=== PATIENT | male | born 1950 | race African-American/Black ===

== ENCOUNTER 2019-08-10 21:35 | Observation (INO) | payer OTHER, SELFPAY ==
[2019-08-11] MEDS ORDERED: Ondansetron ODT 4 MG TAB PO PRN (00:44)
[2019-08-11] MEDS ORDERED: Acetaminophen 325 MG TAB PO PRN (00:44)
[2019-08-11 01:16] VITALS: BMI 25.0
[2019-08-11] MEDS: Diazepam 5 MG TAB PO SCH ×4 (01:19→18:40)
[2019-08-11] MEDS: Multivitamins, Adult 10 ML, Folic Acid 1 MG, Thiamine HCl 100 MG in Dextrose 5 %-0.45 %... IV SCH (01:20)
[2019-08-11 02:30] LABS: Troponin I Less than 0.010 ng/mL (< 0.028)
--- NOTE | 2019-08-11 03:33 | HP ---
CHIEF COMPLAINT: Syncope. HISTORY OF PRESENT ILLNESS: This patient is a 69-year-old male, who has a history of drinking at least 12 beers per day every day. He thinks the last time he might have gone a day without drinking, it was around . Says he did okay at that time with no significant problems. He reports that today he was with some friends drinking and says he drank about 6 pack. He got up quickly, walked out to his truck and passed out. He had no antecedent symptoms. No lightheadedness, shortness of breath, chest pain, or palpitations. The next thing he recalls is the paramedics were there and getting him ready to transport. He has subsequently felt fine, had no problem since that time. He denies ever having anything like this happened to him before. REVIEW OF SYSTEMS: He has had no fevers, or chills. No nausea, or vomiting. Normal bowel and bladder habits. Normal sleep. Normal appetite. All other systems reviewed. All pertinent positives and negatives noted in the HPI. PAST MEDICAL HISTORY: The patient has had some episodes in the past, where he got overheated and drank too much beer, did not eat enough food and had some heat exhaustion and at times became lightheaded, but never had prior syncope. Otherwise, he has no chronic medical problems and is on no daily medications. FAMILY HISTORY: Father had a CVA. Mother of senescence. SOCIAL HISTORY: Again, the patient drinks at least 12 beers per day. He smokes a pack of cigarettes per day. Denies drugs. He is single. He is full code and his [id number], Stacie Arroyo would be his surrogate decision maker should that become necessary. PHYSICAL EXAMINATION: VITAL SIGNS: In the ER, blood pressure ranged from 153/64 to 175/86, pulse was 88-91, respirations 16, temperature 98.5, O2 saturation 94% on room air. GENERAL APPEARANCE: Age-appropriate male. He is sitting in the wheelchair, ready to be transported to a room. He is awake and alert. He is pleasant, and cooperative. He is in no distress. He does have a mild generalized tremor. HEENT: DEBBY. No OP lesions. NECK: Supple and symmetric. HEART: Regular rate and rhythm without murmurs, gallops, or rubs. LUNGS: Clear to auscultation bilaterally, but diminished. No wheezes or rales. ABDOMEN: Soft, nontender, and nondistended. Positive bowel sounds. No masses. No organomegaly. EXTREMITIES: No cyanosis, clubbing, or edema. PSYCHIATRIC: Again, the patient is pleasant, cooperative. NEUROLOGIC: Generalized tremor. No focal deficits. Otherwise, cognitively intact. Cranial nerves appear to be intact and functioning normally. LABORATORY DATA: White count 9.7, hemoglobin 13.5 with an MCV of 101.7, platelets 204. Sodium 135, potassium 3.4, chloride 102, CO2 is 22, BUN 6, creatinine 0.78, glucose 98. Lactic acid was 3.0, calcium was 7.5. AST is 56, ALT 54. Albumin was low at 3.2. Plasma alcohol was 222. Chest x-ray negative. His EKG was reportedly normal. It is not really available for my review at the moment. He appears to have been in normal sinus rhythm on the monitor in the emergency department. HOSPITAL COURSE: The patient initially presented to the emergency department in [place]. There, he received thiamine, D5 normal saline, 1 L dose of cefepime, an additional liter of D5 normal saline. He had 2 L of normal saline as he was felt to be dehydrated. IMPRESSION AND PLAN: 1. Syncopal episode, really unclear as to what happened in this case given the patient's blood alcohol level of 222. He was clearly intoxicated, may simply be that he passed out from intoxication. We will keep him in telemetry, keep him in observation status, check echocardiogram, carotid Dopplers, serial troponins. 2. Alcohol abuse. The patient has a tremor going already and I am little concerned about the possibility of withdrawal. We will go ahead and put him on some scheduled Valium for now. Hopefully, we can get the workup done and get him discharged before he has any withdrawal complications. 3. Lactic acidosis. He did have an ABG with pH 7.269, bicarb 22.5, pCO2 is 49.1, PO2 was 205, it looks like a bit of a mixed acidosis. He has no current evidence of any infection and I do not believe this is sepsis. It is more likely related to the alcohol consumption and possibly dehydration. We will continue to monitor. 4. It is unclear as to whether the patient hit his head. He has no visible signs of trauma. There was a discussion with the emergency room physician and PINEDA Lopez, and the ER physician indicated a head CT would be ordered, but it does not appear as though that has happened. Therefore, we will go ahead and order a head CT as well. 5. Macrocytosis secondary to alcohol abuse. We will give a daily banana bag. Job ID: [id number]
[2019-08-11 05:40] LABS: Anion Gap 11 mmol/L (10-20); BUN (Urea Nitrogen) 6 mg/dL (8.4-25.7); Calc. Creatinine Clearance 122 mL/min (70-130); Calcium 7.7 mg/dL (7.8-10.44); Carbon Dioxide 25 mmol/L (23-31); Chloride 107 mmol/L (98-107); Estimated GFR-MDRD Greater than 90; Glucose 105 mg/dL (80-115); Potassium 3.8 mmol/L (3.5-5.1); Sodium 139 mmol/L (136-145)
[2019-08-11 05:46] LABS: Troponin I Less than 0.010 ng/mL (< 0.028)
--- NOTE | 2019-08-11 08:13 | ULT ---
Carotid duplex sonogram HISTORY: Syncope. CVA. Vascular disease. FINDINGS: Right: Scattered plaque. Color and spectral Doppler evaluation, peak systolic velocity of 59 cm/s, an d IC to CC ratio 0.7 suggest no hemodynamically significant stenosis within the extracranial right ICA. Antegrade flow within the vertebral artery. Left: Prominent plaque. Color and spectral Doppler evaluation, peak systolic velocity of 63 cm/s, and IC to CC ratio of 0.6 suggest no hemodynamically significant stenosis within the extracranial left ICA. Antegrade flow within the vertebral artery. IMPRESSION: Atherosclerosis. No sonographic evidence of significant extracranial ICA stenosis
--- NOTE | 2019-08-11 08:26 | CT ---
CT head noncontrast HISTORY: Syncope. Fall. Injury. FINDINGS: No comparison. There is no evidence of acute intracranial hemorrhage or infarct. Physiologic calcification at the ba silas ganglia. Scattered small old lacunar infarcts. Diffuse cortical atrophy and chronic ischemic small vessel changes. There is no mass effect or shift of structures. Prominent calcification within the arterial structures of the brain base. IMPRESSION: Atherosclerosis. Chronic-type findings. No acute intracranial abnormalities are demonstrated.
[2019-08-11 09:24] LABS: Troponin I 0.014 ng/mL (< 0.028)
[2019-08-11 11:45] LABS: Mean Corpuscular HGB CONC 34.8 g/dL (32.0-36.0); Mean Corpuscular Hemoglobin 34.3 pg (27.0-31.0); Mean Corpuscular Volume 98.6 fL (78.0-98.0); Mean Platelet Volume 8.2 fL (7.4-10.4); Platelet Count 206 thou/uL (130-400); RBC Distribution Width 11.8 % (11.5-14.5); Red Blood Cell (RBC) Count 4.09 mill/uL (4.70-6.10); White Blood Cell (WBC) Count 9.1 thou/uL (4.8-10.8)
[2019-08-11 12:03] LABS: Lactic Acid 1.1 mmol/L (0.5-2.2)
--- NOTE | 2019-08-11 16:08 | PDOC.HOSPP ---
- Subjective Encounter Date: 08/11/19 Encounter Time: 14:00 Subjective: CC: syncope, alcohol withdrawal The patient has no complaints. He is having some tremors. He says he passed out , doesn't remember how much alcohol he drank. Denies headaches, chest pain, shortness of breath . He is withdrawing per nursing staff, BP improved from 190 to 170 with diazepam - Objective Vital Signs & Weight: Vital Signs (12 hours) Temp Pulse Resp BP BP BP BP 08/11/19 16:04 178/86 H 08/11/19 15:45 98.2 F 77 20 178/86 H 08/11/19 14:25 86 175/86 H 08/11/19 12:48 196/91 H 08/11/19 12:12 97.7 F 78 18 196/91 H 08/11/19 09:05 98.1 F 73 20 195/103 H 203/103 H 08/11/19 07:42 193/88 H BP Pulse Ox 08/11/19 16:04 08/11/19 15:45 94 L 08/11/19 14:25 08/11/19 12:48 08/11/19 12:12 97 08/11/19 09:05 193/88 H 97 08/11/19 07:42 Weight Weight 179 lb 6.4 oz I&O: 08/10/19 08/11/19 08/12/19 06:59 06:59 06:59 Intake Total 930 1460 Output Total 575 Balance 355 1460 Result Diagrams: 08/11/19 11:37 08/11/19 04:55 Hospitalist ROS - Review of Systems ENT: denies: ear pain Respiratory: denies: pleuritic pain Cardiovascular: denies: chest pain, palpitations - Medication Medications: Active Medications Generic Name Dose Route Start Last Admin Trade Name Freq PRN Reason Stop Dose Admin Diazepam 5 mg 08/11/19 01:00 08/11/19 12:51 Valium PO 5 mg Q6H CYNDI Administration Multivitamins 10 ml/ Folic 1,011.2 mls @ 100 mls/hr 08/11/19 01:00 08/11/19 01:20 Acid 1 mg/ Thiamine HCl 100 mg IV 08/13/19 11:07 1,011.2 mls / Dextrose/Sodium Chloride Q24HR CYNDI Administration - Exam General Appearance: NAD, awake alert Eye: PERRL, anicteric sclera ENT: normocephalic atraumatic, no oropharyngeal lesions Neck: supple, symmetric, no JVD, no thyromegaly Heart: RRR, no murmur, no gallops, no rubs Respiratory: CTAB, no wheezes, no rales, no ronchi Gastrointestinal: soft, non-tender, non-distended Extremities: no cyanosis, no clubbing, no edema Neurological - other findings: mild tremors on extension of hands Musculoskeletal: normal tone, normal strength, no muscle wasting Hosp A/P - Plan ECHO: EF 55-60%, mild MR This is a 69 year old male who presented with syncope from alcohol intoxication #Alcohol intoxication/withdrawal #Syncope - continue diazepam 5 mg q6 hours - trop negative times two - ECHO unremarkable - CT head negative, carotid doppler shows atherosclerosis - PT evaluation #Hypertension - likely secondary to alcohol withdrawal - BP in the 170's - will add metoprolol 12.5 mg bid #Lactic acidosis - likely from dehydration - resolved DVT prophylaxis: add heparin SC Code status: full code
[2019-08-11] MEDS ORDERED: Amlodipine 5 MG TAB PO SCH (20:00)
[2019-08-11] MEDS: Metoprolol Tartrate 25 MG TAB PO SCH (21:07)
[2019-08-11] MEDS: Heparin 5,000 UNITS/ML VIAL SC SCH (21:08)
[2019-08-12] MEDS: Diazepam 5 MG TAB PO SCH ×2 (01:34→07:02)
[2019-08-12] MEDS: Multivitamins, Adult 10 ML, Folic Acid 1 MG, Thiamine HCl 100 MG in Dextrose 5 %-0.45 %... IV SCH (01:35)
--- NOTE | 2019-08-12 06:54 | PDOC.EVN ---
Event Note - Event Note Event Note: RN called for positive blood culture Microbiology 08/10/19 15:14 Venous blood - Right Leg Blood Culture - Preliminary Gram Positive Cocci Will start empirically on IV Vancomycin. RUBEN KELLY to follow
[2019-08-12] MEDS ORDERED: Vancomycin HCl 1 GM in Premix Bag 1 BAG IVPB SCH (07:00)
[2019-08-12] MEDS: Metoprolol Tartrate 25 MG TAB PO SCH (08:48)
[2019-08-12] MEDS: Heparin 5,000 UNITS/ML VIAL SC SCH (08:49)
[2019-08-12] MEDS ORDERED: Amlodipine 5 MG TAB PO SCH (09:00)
--- NOTE | 2019-08-12 09:01 | PDOC.HOSPP ---
- Subjective Encounter Date: 08/12/19 Encounter Time: 11:40 Subjective: Patient feeling fine, no shakiness. Not interested in quitting drinking alcohol at this time. Orthostatics negative. - Objective Vital Signs & Weight: Vital Signs (12 hours) Temp Pulse Resp BP BP BP BP 08/12/19 07:55 98.1 F 75 20 163/91 H 164/82 H 170/89 H 08/12/19 04:15 66 18 165/75 H 08/11/19 23:40 70 18 168/78 H 08/11/19 21:07 81 179/86 H Pulse Ox 08/12/19 07:55 95 08/12/19 04:15 94 L 08/11/19 23:40 97 08/11/19 21:07 Weight Weight 179 lb 6.4 oz I&O: 08/11/19 08/12/19 08/13/19 06:59 06:59 06:59 Intake Total 930 2610 Output Total 575 Balance 355 2610 Result Diagrams: 08/11/19 11:37 08/11/19 04:55 Radiology Reviewed by me: Yes (ECHO nml EF, no sig abnormalities) Hospitalist ROS - Review of Systems Respiratory: denies: cough, shortness of breath Cardiovascular: denies: chest pain, palpitations, orthopnea Gastrointestinal: denies: nausea, vomiting, abdominal pain Neurological: denies: weakness, numbness, confusion, seizures - Medication Medications: Active Medications Generic Name Dose Route Start Last Admin Trade Name Freq PRN Reason Stop Dose Admin Amlodipine Besylate 5 mg 08/12/19 09:00 08/12/19 08:47 Norvasc PO 5 mg DAILY CYNDI Administration Diazepam 5 mg 08/11/19 01:00 08/12/19 07:02 Valium PO 5 mg Q6H CYNDI Administration Heparin Sodium (Porcine) 5,000 units 08/11/19 21:00 08/12/19 08:49 Heparin SC 5,000 units TID CYNDI Administration Multivitamins 10 ml/ Folic 1,011.2 mls @ 100 mls/hr 08/11/19 01:00 08/12/19 01:35 Acid 1 mg/ Thiamine HCl 100 mg IV 08/13/19 11:07 1,011.2 mls / Dextrose/Sodium Chloride Q24HR CYNDI Administration Metoprolol Tartrate 12.5 mg 08/11/19 21:00 08/12/19 08:48 Lopressor PO 12.5 mg BID CYNDI Administration - Exam General Appearance: NAD, awake alert Eye: anicteric sclera ENT: moist mucosa Heart: RRR, no murmur, no gallops, no rubs Respiratory: CTAB, no wheezes, no rales, no ronchi Gastrointestinal: soft, non-tender, non-distended, normal bowel sounds Neurological: no focal deficits Musculoskeletal: normal tone, normal strength Psychiatric: normal affect, normal behavior, A&O x 3 Hosp A/P (1) Syncope and collapse Code(s): R55 - SYNCOPE AND COLLAPSE Status: Acute (2) Alcohol withdrawal Code(s): F10.239 - ALCOHOL DEPENDENCE WITH WITHDRAWAL, UNSPECIFIED Status: Acute (3) Hypertension Code(s): I10 - ESSENTIAL (PRIMARY) HYPERTENSION Status: Acute (4) Alcohol abuse Code(s): F10.10 - ALCOHOL ABUSE, UNCOMPLICATED Status: Acute (5) Positive blood culture Code(s): R78.81 - BACTEREMIA Status: Acute - Plan continue antibiotics ECHO and carotid dopplers normal, suspect syncope due to alcohol intoxication Currently on benzodiazepines to prevent EtOH withdrawl, BP controlled ok 1/2 gram positive cocci in blood culture coag neg staph which is a contaminent Patient with syncope due to acute alcohol intoxication. Patient going to start drinking again when gets home so no indication for inpatient treatment to prevent EtOH withdrawl, can d/c home.
[2019-08-12 12:05] VITALS: TEMP 98
[2019-08-12 12:22] VITALS: BP 162/86
--- NOTE | 2019-08-12 16:28 | PDOC.EVN ---
Event Note - Event Note Event Note: Discharge Summary Dictated: #[id number]
--- NOTE | 2019-08-12 16:43 | DIS ---
DATE OF ADMISSION: 08/10/2019 DATE OF DISCHARGE: 08/12/2019 PRIMARY CARE PHYSICIAN: King Hutton. REASON FOR ADMISSION: Syncope. DIAGNOSES AT DISCHARGE: 1. Syncope secondary to acute alcohol intoxication. 2. Mild alcohol withdrawal syndrome. 3. Hypertension. 4. Alcohol abuse. PROCEDURES: 1. Carotid ultrasound showing atherosclerosis, but no significant stenosis of the internal carotid arteries bilaterally. 2. CTA of the head, noncontrast, showing no acute intracranial abnormalities. 3. Echocardiogram showing ejection fraction of 55% to 60%. No significant abnormalities. CONSULTATIONS: None. SUMMARY OF HOSPITAL COURSE: This is a 69-year-old male with a history of chronic alcoholism, drinks at least 12 beers every day, very rarely goes a day without drinking heavily. He has never had any significant withdrawal symptoms before. The patient reports that he was out drinking, uncertain exactly how many drinks he had, at one point he said a six-pack, after that, he could not really remember, then he got up quickly, walked out to his truck and passed out. No preceding symptoms. Next thing he remembered was when the paramedics were there and getting him ready for transport. The patient was found to have a plasma alcohol level of 222. The rest of his lab was okay except for mild lactic acidosis. The patient had negative workup in the ER. He was put in observation to do an ultrasound of the carotids and an echocardiogram and he had a brain CT all for his syncope workup. These were all normal. The patient did have a little bit of shakiness at one point in the hospital. He was started on regular Valium had resolution of that. He was doing fine the day of discharge. His blood pressure also went up a little bit to the 160s to 180s range at that time, but never went any higher than that, and he never developed any tachycardia. The patient was doing well the day of discharge and is being discharged home to follow up with the primary care physician. I did genetic counsellor the patient about cessation of alcohol. He is not interested in quitting his alcohol at this time, so there is no reason to keep him in the hospital as he is just going to go back to drinking when he gets home. DISCHARGE MANAGEMENT: Discharged home. FOLLOWUP: Follow up with primary care physician in 7 days. ACTIVITY: As tolerated. DIET: Healthy heart diet. MEDICATIONS: 1. Amlodipine 5 mg daily, 30 tablets dispensed. 2. Metoprolol tartrate 12.5 mg twice a day, 60 tablets dispensed. Job ID: [id number]
[2019-08-12] MEDS ORDERED: Vancomycin HCl 1.25 GM in Sodium Chloride 0.9% 250 ML 250 ML IVPB SCH (21:00)
== END 2019-08-12 12:58 | disposition home or self-care (01) ==
LOC: ERS 21:35 → 2SW 23:44
PROVIDERS: ADMIT Internal Medicine; ATTEND Internal Medicine
DX: R55 Syncope and collapse (principal); F10.239 Alcohol dependence with withdrawal, unspecified; I10 Essential (primary) hypertension
CPT/HCPCS: 36415; 70450; 80048; 82310; 82607; 82746; 83605; 84484; 85027; 93306; 93880; 96365; 96366; 96367; 96372; G0378; J1644; J3370; J3411; J7042; J7050

== ENCOUNTER 2019-12-30 19:17 | Inpatient (IN) | payer SELFPAY ==
[2019-12-30] MEDS ORDERED: fentaNYL Citrate/PF 2,000 MCG in Sodium Chloride 0.9% 60 ML IV SCH (19:41)
[2019-12-30 19:54] LABS: #Lymphocytes 0.8 thou/uL (1.20-3.40); #Monocytes 0.8 thou/uL (0.11-0.59); #Neutrophils 11.2 thou/uL (1.40-6.50); %Basophils 0.3 % (0.0-1.0); %Eosinophils 0.2 % (0.0-10.0); %Lymphocytes 6.2 % (21.0-51.0); %Monocytes 6.4 % (0.0-10.0); %Neutrophils 86.9 % (42.0-75.0); Hemoglobin 14.5 g/dL (14.0-18.0); Mean Corpuscular HGB CONC 36.1 g/dL (32.0-36.0); Mean Corpuscular Hemoglobin 36.7 pg (27.0-31.0); Mean Platelet Volume 8.3 fL (7.4-10.4); Platelet Count 170 thou/uL (130-400); RBC Distribution Width 12.1 % (11.5-14.5); Red Blood Cell (RBC) Count 3.96 mill/uL (4.70-6.10); White Blood Cell (WBC) Count 12.9 thou/uL (4.8-10.8)
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
[2019-12-30 20:11] LABS: Actual Bicarbonate (HCO3a) 14.1 mEq/L (22-28); Analyzer IN Cardio ER; Base Excess (BEa) -10.4 mEq/L (-2.0 to +3.0); Calcium, Ionized 1.03 mmol/L (1.12-1.30); Carboxyhemoglobin (COHb) 0.8 gm% (0.0-3.0); O2 Tension (PaO2), arterial 364.1 mmHg (> 70.0); Potassium - ABG Lab 4.09 mmol/L (3.70-5.30); pH, Arterial 7.32 (7.35-7.45)
--- NOTE | 2019-12-30 20:13 | RAD ---
Chest AP view INDICATION: Chest pain with ETT confirmation COMPARISON: December 30, 2019 at 4:43 PM FINDINGS: Lungs: The lungs are clear. Chronic lung changes are similar appearing. Cardiac silhouette: The cardiomediastinal silhouette appears within normal limits. Pulmonary vasculature: Normal Pleural spaces: No pleural effusion or pneumothorax is demonstrated. Upper abdomen: There is been interval placement of a gastric catheter. Gastric catheter tip projects below the left hemidiaphragm and beyond the [id number]. Osseous structures: No acute osseous abnormality. Additional findings: ET tube tip has been retracted with the tip now residing approximately 9.7 cm a angy the level of the asiya. IMPRESSION: No acute cardiopulmonary abnormality. ET tube and gastric catheter as above.
[2019-12-30 20:14] LABS: Acetaminophen Less than 6.0 mcg/mL (10.0-30.0); Alcohol 243 mg/dL (Less than 10); Salicylate Less than 8.0 mg/dL (15.0-30.0)
[2019-12-30 20:28] LABS: Puncture Site LRA
[2019-12-30] MEDS ORDERED: Promethazine HCl 12.5 MG in Sodium Chloride 0.9% 50 ML IVPB PRN (20:36)
[2019-12-30] MEDS ORDERED: Morphine 2 MG/ML SYRINGE SLOW IVP PRN (20:36)
[2019-12-30] MEDS ORDERED: Ondansetron PF 4 MG/2 ML Vial IVP PRN (20:36)
[2019-12-30] MEDS ORDERED: Acetaminophen 325 MG TAB PO PRN (20:40)
[2019-12-30] MEDS ORDERED: Senokot S 8.6-50 MG TAB PO PRN (20:40)
[2019-12-30] MEDS ORDERED: HYDROcodone/Acetaminophen 5/325 mg Tablet PO PRN (20:40)
[2019-12-30] MEDS ORDERED: Mag-Al 1200 mg/1200 mg/30 ML UDCUP PO PRN (20:40)
[2019-12-30] MEDS ORDERED: Guaifenesin DM 100-10/5 ML UDCUP PO PRN (20:40)
[2019-12-30] MEDS ORDERED: Acetaminophen 650 MG Suppository PR PRN (20:40)
[2019-12-30] MEDS ORDERED: Norepinephrine 8 MG/0.9% NS 250 ML IVPB PRN (20:40)
[2019-12-30] MEDS ORDERED: CCU Electrolyte Replacement 1 EACH IVPB ONE (20:40)
[2019-12-30] MEDS ORDERED: Milk Of Magnesia 30 ML UDCUP PO PRN (20:40)
[2019-12-30] MEDS ORDERED: Bisacodyl 10 MG SUPP PR PRN (20:40)
[2019-12-30] MEDS ORDERED: Bisacodyl 5 MG TAB PO PRN (20:40)
[2019-12-30] MEDS ORDERED: Magnesium 2 GM/50 ML BAG (IN WATER) ONE (20:45)
[2019-12-30] MEDS ORDERED: Ventilator Sedation Protocol 1 EACH FS SCH (20:45)
[2019-12-30] MEDS ORDERED: Sodium Chloride 0.9% 1,000 ML IV SCH (20:45)
[2019-12-30 20:47] LABS: CKMB 6.9 ng/mL (0-6.6)
[2019-12-30] MEDS ORDERED: Potassium Phosphate 9 MMOL in Sodium Chloride 0.9% 100 ML IVPB PRN (20:56)
[2019-12-30] MEDS ORDERED: Potassium Phosphate 15 MMOL in Sodium Chloride 0.9% 250 ML 250 ML IV PRN (20:56)
[2019-12-30] MEDS ORDERED: Potassium Chloride 40 MEQ in Premix Bag 1 BAG IVPB PRN (20:56)
[2019-12-30] MEDS ORDERED: PHOS-NAK 1 PKT PACK PO PRN ×2 (20:56)
[2019-12-30] MEDS ORDERED: Magnesium 2 GM/50 ML 2 GM in Premix Bag 1 BAG IVPB PRN (20:56)
[2019-12-30] MEDS ORDERED: Potassium Chloride 20 MEQ TAB PO PRN (20:56)
[2019-12-30] MEDS ORDERED: Potassium Chloride 40 MEQ in Sodium Chloride 0.9% 250 ML 250 ML IVPB PRN (20:56)
[2019-12-30] MEDS ORDERED: Potassium Phosphate 12 MMOL in Sodium Chloride 0.9% 250 ML 250 ML IV PRN (20:56)
[2019-12-30] MEDS ORDERED: Magnesium Oxide 400 MG TAB PO PRN ×2 (20:56)
[2019-12-30] MEDS ORDERED: CCU ELECTROLYTE REPLACEMENT PROTOCOL FS PRN (20:56)
[2019-12-30] MEDS ORDERED: DISCONTINUE PREVIOUS NARCOTIC PAIN MEDICATIONS AND BENZODIAZEPINES FS SCH (20:58)
[2019-12-30] MEDS ORDERED: Fentanyl BOLUS 250 ML IVPB PRN (20:58)
[2019-12-30] MEDS ORDERED: Propofol BOLUS 1,000 MG/100 ML VIAL IV PRN (20:58)
[2019-12-30] MEDS ORDERED: Vancomycin 1 GM in Premix Bag 1 BAG IVPB SCH (21:00)
[2019-12-30 21:09] LABS: ALT (SGPT) 189 U/L (8-55); AST (SGOT) 341 U/L (5-34); Albumin 3.4 g/dL (3.4-4.8); Alkaline Phosphatase 67 U/L (40-110); Anion Gap 20 mmol/L (10-20); BUN (Urea Nitrogen) 8 mg/dL (8.4-25.7); Bilirubin, Total 0.4 mg/dL (0.2-1.2); Calc. Creatinine Clearance 0 mL/min (70-130); Calcium 7.4 mg/dL (7.8-10.44); Carbon Dioxide 14 mmol/L (23-31); Chloride 104 mmol/L (98-107); Estimated GFR-MDRD Greater than 90; Globulin 3.4 g/dL (2.4-3.5); Glucose 123 mg/dL (80-115); Potassium 4.2 mmol/L (3.5-5.1); Protein, Total 6.8 g/dL (5.8-8.1); Sodium 134 mmol/L (136-145)
[2019-12-30] MEDS ORDERED: Bacteriostatic Water 30 ML VIAL FS PRN (21:43)
[2019-12-30 21:54] LABS: Troponin I 0.094 ng/mL (< 0.028)
--- NOTE | 2019-12-30 21:59 | RAD ---
Chest AP view INDICATION: ET tube tip adjustment COMPARISON: Prior examination dated December 30, 2019 at 7:32 PM FINDINGS: Lungs: The lungs are clear Cardiac silhouette: The cardiomediastinal silhouette appears within normal limits. Pulmonary vasculature: Normal Pleural spaces: No pleural effusion or pneumothorax is demonstrated. Upper abdomen: No abnormality seen. Osseous structures: No acute osseous abnormality. Additional findings: ET tube tip has been advanced with the tip now present 4.7 cm above the level o f asiya. Gastric catheter is unchanged. IMPRESSION: No acute cardiopulmonary abnormality.
[2019-12-30] MEDS ORDERED: methylPREDNISolone Sod Succ/PF 125 MG/2 ML VIAL IVP SCH (22:00)
[2019-12-30] MEDS ORDERED: Thiamine HCl 200 MG/2 ML VIAL SLOW IVP SCH (22:00)
[2019-12-30 23:01] LABS: Lactic Acid 2.4 mmol/L (0.5-2.2)
[2019-12-30] MEDS: levETIRAcetam In NaCl (Iso-Os) 1,000 MG in Premix Bag 1 BAG IVPB SCH (23:15)
[2019-12-30] MEDS: Famotidine/PF 20 mg/2ml Vial SLOW IVP SCH (23:16)
[2019-12-30] MEDS: Famotidine 20 MG TAB PO SCH (23:19)
[2019-12-30] MEDS: Piperacillin/Tazobactam 3.375 GM in Sodium Chloride 0.9% 100 ML IVPB SCH (23:19)
[2019-12-30 23:53] LABS: Bacteria/HPF None Seen HPF (None Seen); Bilirubin Negative (Negative); Blood, Urine Trace (Negative); Clarity Clear (Clear); Glucose, Urine (Dipstick) Normal (Negative); Leukocyte Negative Leu/uL (Negative); Mucous/LPF 1+ LPF (<2+); Nitrite Negative (Negative); Protein, Urine (Dipstick) 20 mg/dL (Neg-Trace); RBC/HPF 0-3 HPF (0-3); Squamous Epithelial 0-3 HPF (0-3); Urobilinogen Normal mg/dL (Less than 2); WBC/HPF 0-3 HPF (0-3)
[2019-12-31] MEDS ORDERED: Dextrose 5 % And 0.9 % NaCl 1,000 ML IV SCH (00:15)
[2019-12-31] MEDS: Sodium Chloride 0.9% 1,000 ML IV SCH ×3 (00:42→20:07)
[2019-12-31 03:55] LABS: #Lymphocytes 0.5 thou/uL (1.20-3.40); #Monocytes 0.4 thou/uL (0.11-0.59); #Neutrophils 12.1 thou/uL (1.40-6.50); %Basophils 0.2 % (0.0-1.0); %Eosinophils 0.1 % (0.0-10.0); %Lymphocytes 3.6 % (21.0-51.0); %Monocytes 3.1 % (0.0-10.0); %Neutrophils 93.1 % (42.0-75.0); Hemoglobin 13.6 g/dL (14.0-18.0); Mean Corpuscular HGB CONC 33.1 g/dL (32.0-36.0); Mean Corpuscular Hemoglobin 33.7 pg (27.0-31.0); Mean Platelet Volume 7.9 fL (7.4-10.4); Platelet Count 161 thou/uL (130-400); RBC Distribution Width 12.1 % (11.5-14.5); Red Blood Cell (RBC) Count 4.04 mill/uL (4.70-6.10)
[2019-12-31 04:18] LABS: ALT (SGPT) 167 U/L (8-55); AST (SGOT) 350 U/L (5-34); Albumin 3.2 g/dL (3.4-4.8); Alkaline Phosphatase 58 U/L (40-110); Anion Gap 18 mmol/L (10-20); BUN (Urea Nitrogen) 9 mg/dL (8.4-25.7); Bilirubin, Direct 0.3 mg/dL (0.1-0.3); Bilirubin, Total 0.5 mg/dL (0.2-1.2); Calc. Creatinine Clearance 110 mL/min (70-130); Calcium 7.2 mg/dL (7.8-10.44); Carbon Dioxide 15 mmol/L (23-31); Chloride 106 mmol/L (98-107); Estimated GFR-MDRD Greater than 90; Glucose 123 mg/dL (80-115); Magnesium 2.2 mg/dL (1.6-2.6); Potassium 4.1 mmol/L (3.5-5.1); Protein, Total 6.8 g/dL (5.8-8.1); Sodium 135 mmol/L (136-145)
[2019-12-31 04:25] LABS: Troponin I 0.076 ng/mL (< 0.028)
[2019-12-31] MEDS: Piperacillin/Tazobactam 3.375 GM in Sodium Chloride 0.9% 100 ML IVPB SCH ×4 (04:46→20:43)
[2019-12-31] MEDS ORDERED: methylPREDNISolone Sod Succ/PF 125 MG/2 ML VIAL IVP SCH (06:00)
[2019-12-31] MEDS: methylPREDNISolone Sod Succ 40 MG VIAL IVP SCH ×3 (06:33→20:42)
[2019-12-31] MEDS: Multivitamins, Adult 10 ML, Folic Acid 1 MG, Thiamine HCl 100 MG in Dextrose 5 %-0.45 %... IV SCH (06:34)
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
[2019-12-31 07:05] LABS: Actual Bicarbonate (HCO3a) 17.1 mEq/L (22-28); Base Excess (BEa) -7.1 mEq/L (-2.0 to +3.0); CO2 Tension 30.8 mmHg (35.0-45.0); Carboxyhemoglobin (COHb) 1.1 gm% (0.0-3.0); Hemoglobin (Hb) 13.7 g/dL (14.0-18.0); O2 Tension (PaO2), arterial 100.2 mmHg (> 70.0); Potassium - ABG Lab 3.97 mmol/L (3.70-5.30); pH, Arterial 7.36 (7.35-7.45)
[2019-12-31 07:41] LABS: Puncture Site RR
[2019-12-31] MEDS: Famotidine 20 MG TAB PO SCH ×2 (09:00→20:06)
[2019-12-31] MEDS: Polyethylene Glycol 3350 17 GM Packet PO SCH (09:00)
--- NOTE | 2019-12-31 09:18 | CT ---
CT BRAIN NONCONTRAST: DATE: 12/31/2019 9:03 AM HISTORY: 69-year-old male status post acute head trauma due to fall FINDINGS: There is no evidence of acute intra-axial or extra-axial hemorrhage. There is no midline shift or any other mass effect. There is no extra-axial fluid collection. There is no evidence of obstructive hydrocephalus. Calvarium is intact. There is diffuse brain parenchymal volume loss. There are low att enuation areas in the white matter. These are nonspecific, but in a patient of this age, they are probably chronic ischemic white matter changes due to microvascular atherosclerosis. Nondisplaced kurt ear lucency consistent with fracture of right sphenoid bone involving right lateral posterior edge of right sphenoid air cell. New finding of air-fluid levels in the bilateral sphenoid air cells megan red to 12/30/2019. Complete opacification of nasopharyngeal airway, related to intubation. The bilateral tympanomastoid cavities are not grossly opacified. IMPRESSION: 1) nondisplaced skull base fracture: Right side of sphenoid bone. 2) fluid in sphenoid sinus may represent blood. 3.) otherwise no other acute intracranial findings. 4.) involutional changes and chronic ischemic white matter changes.
[2019-12-31 10:14] LABS: Troponin I 0.037 ng/mL (< 0.028)
--- NOTE | 2019-12-31 10:32 | PDOC.HOSPP ---
- Subjective Encounter Date: 12/31/19 Encounter Time: 10:31 Subjective: Mr. Arroyo was seen today in follow-up of out of hospital arrest. He is unresponsive. EEG is in progress - Objective Vital Signs & Weight: Vital Signs (12 hours) Temp Pulse Resp BP 12/31/19 07:31 89 160/64 H 12/31/19 06:00 21 H 12/31/19 04:00 98.6 F 21 H 12/31/19 02:39 83 147/79 H 12/31/19 02:00 22 H 12/31/19 00:00 97.7 F 21 H Weight Weight 185 lb 3.013 oz Most Recent Monitor Data Heart Rate from ECG 86 NIBP 167/81 NIBP BP-Mean 109 Respiration from ECG 20 SpO2 100 I&O: 12/30/19 12/31/19 01/01/20 06:59 06:59 06:59 Intake Total 1119 Output Total 1000 Balance 119 Result Diagrams: 12/31/19 03:35 12/31/19 03:35 Hospitalist ROS - Medication Medications: Active Medications Generic Name Dose Route Start Last Admin Trade Name Freq PRN Reason Stop Dose Admin Famotidine 20 mg 12/30/19 21:00 12/30/19 23:19 Pepcid PO Not Given BID CYNDI Famotidine 20 mg 12/30/19 21:00 12/30/19 23:16 Pepcid SLOW IVP 20 mg Q12HR CYNDI Administration Levetiracetam 1,000 mg/ Device 100 mls @ 200 mls/hr 12/30/19 21:00 12/30/19 23:15 IVPB 100 mls BID CYNDI Administration Piperacillin Sod/Tazobactam 100 mls @ 200 mls/hr 12/30/19 22:00 12/31/19 04: 46 Sod 3.375 gm/ Sodium Chloride IVPB 01/02/20 23:59 100 mls 0400,1000,1600,2200 CYNDI Administration Sodium Chloride 1,000 mls @ 100 mls/hr 12/31/19 00:15 12/31/19 00:42 Normal Saline 0.9% IV Not Given .Q10H CYNDI Multivitamins 10 ml/ Folic 1,011.2 mls @ 100 mls/hr 12/31/19 06:30 12/31/19 06:34 Acid 1 mg/ Thiamine HCl 100 mg IV 1,011.2 mls / Dextrose/Sodium Chloride Q24HR CYNDI Administration Methylprednisolone Sodium Succinate 20 mg 12/31/19 06:00 12/31/19 06:33 Solu-Medrol IVP 20 mg Q8HR CYNDI Administration - Exam Heart: RRR, no murmur, no gallops, no rubs, normal peripheral pulses Respiratory: CTAB (+ coarse breath sounds), no wheezes, no rales Gastrointestinal: soft (bowel sounds present) Extremities: no cyanosis, no edema Neurological - other findings: no withdraw to pain Hosp A/P (1) Cardiac arrest Code(s): I46.9 - CARDIAC ARREST, CAUSE UNSPECIFIED Status: Acute (2) Anoxic brain injury Status: Acute (3) Alcohol abuse Code(s): F10.10 - ALCOHOL ABUSE, UNCOMPLICATED Status: Acute (4) Seizure disorder Code(s): G40.909 - EPILEPSY, UNSP, NOT INTRACTABLE, WITHOUT STATUS EPILEPTICUS Status: Acute - Plan * Post Cardiac arrest- ? etiology. this may be due to a seizure- given a prior history- EEG is in progress * CT C-spine is negative for fracture * Neuro-surgery recommendations noted * Agree with empiric antibiotics * Continue Vent support * Further recommendations dependent on EEG results
--- NOTE | 2019-12-31 11:21 | CT ---
CT CERVICAL SPINE WITHOUT CONTRAST: INDICATION: Unresponsive patient. Recent fall with head injury. COMPARISON: Comparison is made to CT cervical spine performed yesterday. FINDINGS: Cervical vertebrae maintain normal height and alignment. There are moderate degenerative changes pre sent with loss of disk space and hypertrophic spurring from the cervical vertebrae. No evidence of c ervical spine fracture identified. Mild disk bulge with spondylosis at C4-5 abut the cord and there is mild right foraminal narrowing at this level due to hypertrophic change. Spondylosis at C5-6 is p rominent abutting the anterior cord and there is bilateral foraminal stenosis at this level. Disk bu lge at C6-7 without foraminal stenosis. IMPRESSION: There are degenerative changes as described. No acute fracture. No change from yesterday. POS: AGW
[2019-12-31] MEDS: levETIRAcetam In NaCl (Iso-Os) 1,000 MG in Premix Bag 1 BAG IVPB SCH ×2 (11:53→20:06)
[2019-12-31] MEDS: Famotidine/PF 20 mg/2ml Vial SLOW IVP SCH ×2 (11:56→20:05)
[2019-12-31] MEDS: Folic Acid 1 MG TAB PO SCH (11:57)
[2019-12-31] MEDS: Vancomycin HCl 1.25 GM in Sodium Chloride 0.9% 250 ML 250 ML IVPB SCH ×2 (12:05→23:08)
--- NOTE | 2019-12-31 12:26 | PRG ---
DATE OF SERVICE: 12/31/2019 Ede Cortés PA-C from a Neurosurgery Service will be seeing the patient later. We have been consulted Sriram Arroyo for skull base fracture. This 69-year-old chronic alcohol abuser, had a witnessed fall, followed by apparent pulseless state requiring [id number] resuscitation. He was transferred into our facility from [place] for further care. Neurosurgery was consulted due to the retrospective finding of a small skull base fracture in the sphenoid bone on the right side. I reviewed the films and I have seen the fracture. There is no derangement of intracranial structures. There is no extra-axial hemorrhage. There is no mass effect. There is no shift. The cervical spine is negative. Mr. Arroyo would not require neurosurgical intervention. This skull base fracture will heal on its own and there will be no Neurosurgery followup needed for it. Please call us with any further questions. Job ID: [id number]
--- NOTE | 2019-12-31 13:31 | CON ---
DATE OF CONSULTATION: 12/31/2019 REASON FOR CONSULTATION: Altered mental status. HISTORY OF PRESENT ILLNESS: Mr. Sriram Arroyo is a 69-year-old male with history significant for alcohol abuse, hypertension, transferred from [place] for syncope and cardiac arrest. He was found down after falling and hitting his head onto the ground. He was found to be in cardiac arrest and was pulseless. He underwent ACLS and CPR with ROSC, intubated, and given Versed, phenytoin, epinephrine, calcium gluconate, potassium chloride. Head CT was done, which was negative for acute intracranial pathology. He does have bilateral nasal bone fractures and a chest x-ray showed nondisplaced bilateral anterior mid rib fracture, otherwise no emphysema or pneumonia. He was admitted previously in July 2019 for syncope. The old records were reviewed, which showed that he drinks 12 beers a day. He had carotid ultrasound and CT head was performed and echo was performed , which were normal. His echocardiography was done on 08/11/2019, which showed ejection fraction of 55%. He did experience withdrawal seizures, but there is no history of seizures in the records. Neurology was consulted to rule out seizures because twitching was noticed. REVIEW OF SYSTEMS: Unobtainable due to mental status. MEDICATIONS: 1. Amlodipine 5 mg daily. 2. Metoprolol 25 mg b.i.d. PAST MEDICAL HISTORY: Hypertension, alcohol abuse, and a presumed history of seizures. PAST SURGICAL HISTORY: No pertinent past surgical history. FAMILY HISTORY: No pertinent family history. SOCIAL HISTORY: He has a history of alcohol abuse and drinks 10 plus drinks a day. There is no documented history of nicotine or illegal drug abuse. Vital Signs & Weight: Vital Signs (12 hours) Temp Pulse Resp BP 12/31/19 07:31 89 160/64 H 12/31/19 06:00 21 H 12/31/19 04:00 98.6 F 21 H 12/31/19 02:39 83 147/79 H 12/31/19 02:00 22 H 12/31/19 00:00 97.7 F 21 H Weight Weight 185 lb 3.013 oz Most Recent Monitor Data Heart Rate from ECG 86 NIBP 167/81 NIBP BP-Mean 109 Respiration from ECG 20 SpO2 100 I&O: 12/30/19 12/31/19 01/01/20 06:59 06:59 06:59 Intake Total 1119 Output Total 1000 Balance 119 12/31/19 03:35 Hospitalist ROS - Medication Medications: Active Medications Generic Name Dose Route Start Last Admin Trade Name Mickyq PRN Reason Stop Dose Admin Famotidine 20 mg 12/30/19 21:00 12/30/19 23:19 Pepcid PO Not Given BID CYNDI Famotidine 20 mg 12/30/19 21:00 12/30/19 23:16 Pepcid SLOW IVP 20 mg Q12HR CYNDI Administration Levetiracetam 1,000 mg/ Device 100 mls @ 200 mls/hr 12/30/19 21:00 12/30/19 23:15 IVPB 100 mls BID CYNDI Administration Piperacillin Sod/Tazobactam 100 mls @ 200 mls/hr 12/30/19 22:00 12/31/19 04: 46 Sod 3.375 gm/ Sodium Chloride IVPB 01/02/20 23:59 100 mls 0400,1000,1600,2200 CYNDI Administration Sodium Chloride 1,000 mls @ 100 mls/hr 12/31/19 00:15 12/31/19 00:42 Normal Saline 0.9% IV Not Given .Q10H CYNDI Multivitamins 10 ml/ Folic 1,011.2 mls @ 100 mls/hr 12/31/19 06:30 12/31/19 06:34 Acid 1 mg/ Thiamine HCl 100 mg IV 1,011.2 mls / Dextrose/Sodium Chloride Q24HR CYNDI Administration Methylprednisolone Sodium Succinate 20 mg 12/31/19 06:00 12/31/19 06:33 Solu-Medrol IVP 20 mg Q8HR CYNDI Administration PHYSICAL EXAMINATION: GENERAL: The patient is intubated and sedated. HEENT: Normocephalic and atraumatic. NECK: Supple. No carotid bruit. HEART: Regular rate and rhythm. NEUROLOGIC: Mental status; the patient is intubated and sedated. He does not follow commands. He does not maintain any eye contact. Cranial nerves; pupils equal and reactive to light. Face symmetric. Tongue midline. Corneas positive. Gag positive. No roving eye movements or gaze preference seen. Motor; muscle tone and bulk are normal. No withdrawal of all 4 extremities to nailbed pressure. Sensory; no withdrawal of all 4 extremities to nailbed pressure. Reflexes absent bilaterally. Toes equivocal bilaterally. Cerebellar could not be performed secondary to mental status. Gait could not be tested secondary to the patient's condition. DATA REVIEWED: I reviewed the labs, which were essentially unremarkable except sodium of 134, and glucose 123. I did review the CT of the cervical spine, which showed degenerative changes and spondylosis at C5-6 and disk bulge at C6-7 without foraminal stenosis. No acute fracture. Head CT showed nondisplaced skull base fracture. Right-sided sphenoid bone fluid and sphenoid bone may represent blood. Otherwise, no acute intracranial changes. ASSESSMENT AND PLAN: A 69-year-old male with altered mental status, status post fall. History significant for alcohol abuse and possible alcohol withdrawal seizure from possible alcohol withdrawal. There is also some documentation in the chart about a seizure disorder, which is not clear. Head CT reviewed, which did not reveal any acute intracranial pathology. Recommend MRI brain. EEG reviewed, which was consistent with [id number] generalized nonspecific cerebral dysfunction. No ictal or interictal epileptiform abnormalities were seen during the recording. Continue on Keppra for now since there is no clear history about whether he had alcohol withdrawal seizures or history of underlying seizure disorder. Observe seizure precautions. Ativan 2 mg IV for seizure greater than 2 minutes. Neuro checks every 2 hours. Continue home medications. Continue medical management per primary team. We will continue to follow. Thank you for the consult. Job ID: [id number] MTDD
[2019-12-31] MEDS: Propofol 1,000 MG/100 ML VIAL IV PRN ×2 (13:32→20:06)
[2019-12-31] MEDS: hydrALAZINE 20 MG/ML VIAL SLOW IVP PRN ×2 (14:24→20:12)
--- NOTE | 2019-12-31 15:23 | EEG ---
Referring Physician: Courtney TOMLIN EEG # [id number] TEST TYPE: CONTINUOUS EXTENDED VIDEO EEG REPORT: This EEG was performed using 24 channel [email or web address] video digital EEG machine with 24 disc electrodes. This was an extended 2 hour 17 minutes of inpatient video EEG recording. Digital analysis of the EEG was done with spike and seizure detection which revealed no abnormalities. BACKGROUND: The posterior background rhythm was not observed. HYPERVENTILATION: Was not performed. PHOTIC STIMULATION: No significant response seen with photic stimulation. SLEEP: No stage change was observed. EEG DIAGNOSIS: 1.) Low amplitude EEG with intermittent theta and delta activity. 2.) Absence of posterior background rhythm. CLINICAL INTERPRETATION: THIS EEG IS CONSISTENT WITH MODERATE TO SEVERE GENERALIZED NONSPECIFIC CEREBRAL DYSFUNCTION. NO ICTAL OR INTERICTAL EPILEPTIFORM ABNORMALITIES SEEN DURING THE RECORDING. Analytics Consultant: [employer] Laboratory Technician: EEG.JESSICA CAIN
[2019-12-31] MEDS: cloNIDine 0.1 MG TAB PO PRN (16:46)
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
[2019-12-31] MEDS: Morphine 2 MG/ML SYRINGE SLOW IVP PRN (20:22)
--- NOTE | 2019-12-31 21:27 | CON ---
DATE OF CONSULTATION: 12/31/2019 REASON FOR CONSULTATION: Skull base fracture of the right sphenoid bone. HISTORY OF PRESENT ILLNESS: Mr. Arroyo is a 69-year-old male with a history of alcohol abuse and hypertension. He had a witnessed fall followed by a syncope and cardiac arrest. He was transferred from [place] to our emergency room requiring resuscitation. CT of the cervical spine showed no acute fractures. CT of the brain showed a skull base fracture of the right sphenoid bone. REVIEW OF SYSTEMS: Unobtainable, patient is intubated and sedated. MEDICATIONS: 1. Metoprolol 25 mg. 2. Amlodipine 5 mg. PAST MEDICAL HISTORY: 1. Alcohol abuse. 2. Hypertension. 3. History of seizures. SOCIAL HISTORY: The patient drinks a 12 pack of beer daily and smokes 2 packs per day. Denies illicit drug use. FAMILY HISTORY: Unable to obtain history. PAST SURGICAL HISTORY: No pertinent past surgical history. PHYSICAL EXAMINATION: VITAL SIGNS: 153/92, heart rate 89. GENERAL: The patient is intubated and sedated. HEENT: Pupils are equal and reactive to light. Exam is limited. NEUROLOGIC: He does not follow commands. Muscle tone is normal. He does not respond to nail pressure or rubbing of the sternum. Reflexes are absent. Gait is unobtainable. LABORATORY DATA: WBC 13, platelet 160. Sodium 135. Coag, not done. Plasma alcohol 243. IMAGIN. CT of the brain, small skull base fracture in the sphenoid bone on the right side. 2. CT of the cervical spine is negative. PLAN: There is no instability of the intracranial structures. There are no intracranial hemorrhage bleeds. There are no masses noted of the brain. There is no shift. Cervical spine is negative. Mr. Arroyo would not require neurosurgical intervention of his skull base fracture, which should heal on its own. Since his cervical spine is negative for fractures, his collar can be removed. Job ID: [id number] [facility]
[2019-12-31] MEDS: Labetalol HCl 100 MG/20 ML VIAL SLOW IVP PRN (22:23)
--- NOTE | 2019-12-31 23:11 | OP ---
DATE OF PROCEDURE: 12/31/2019 PROCEDURE PERFORMED: Saini catheter. DESCRIPTION OF PROCEDURE: Under sterile conditions, the patient's urethra was filled with lubricating jelly. 18-Luxembourgish coude catheter was carefully guided through the prostatic urethra with mild amount of difficulty and into the bladder. 10 mL was instilled into the balloon without resistance. This was connected to leg bag with minimal drainage. I then irrigated the catheter with saline, noting that it irrigates well, at which point, we began to see urine output. Job ID: [id number]
[2020-01-01] MEDS: Sodium Chloride 0.9% 1,000 ML IV SCH ×3 (01:42→20:05)
--- NOTE | 2020-01-01 01:55 | CON ---
DATE OF CONSULTATION: 12/31/2019 REASON FOR CONSULTATION: Saini catheter placement. CHIEF COMPLAINT: Intubated in ICU. HISTORY OF PRESENT ILLNESS: This is a 69-year-old male, currently intubated in the ICU after being admitted on December 29 with acute alcohol intoxication with syncope, cardiac arrest, and unwitnessed fall. He was initially resuscitated in [place] and transferred here. He remains intubated and sedated currently. Saini catheter was placed, but was found to be not draining with incontinence around the catheter throughout the day. An attempt with an 18-Faroese coude catheter was attempted and unsuccessful as well. At this point, I was consulted and unable to obtain any medical history from the patient or review of systems, and so the history is gleaned from his chart. PAST MEDICAL HISTORY: Hypertension, alcohol abuse, and possible seizure disorder. PAST SURGICAL HISTORY: Unknown. MEDICATIONS: 1. Amlodipine. 2. Metoprolol. FAMILY HISTORY: No pertinent history documented. SOCIAL HISTORY: Alcohol abuse. REVIEW OF SYSTEMS: Unable to obtain. PHYSICAL EXAMINATION: GENERAL: Intubated and sedated. HEENT: Eyes; pupils equal, round, reactive to light. NECK: Supple. Trachea midline. RESPIRATORY: Symmetric chest expansion. HEART: Regular rate and rhythm. ABDOMEN: Soft, nontender, and nondistended. No flank bruising. EXTREMITIES: Without clubbing, cyanosis, or edema. SKIN: Warm and dry. NEUROLOGIC: Unable to evaluate. PSYCHIATRIC: Unable to evaluate. LABORATORY DATA: White count 13. Creatinine 0.74. Urinalysis, negative for infection. IMAGING: CT of chest, abdomen, and pelvis, nondisplaced rib fracture. No pneumothorax or emphysema, no mention of any urologic abnormality. ASSESSMENT AND PLAN: Urinary retention. Saini catheter was placed as described in separate progress note. This will need to remain until he is alert and oriented. There is nothing in his history or an exam that would indicate a history of urologic surgery. TIME SPENT: 50 minutes spent in the patient care. Job ID: [id number]
[2020-01-01] MEDS: Piperacillin/Tazobactam 3.375 GM in Sodium Chloride 0.9% 100 ML IVPB SCH ×4 (03:40→21:03)
[2020-01-01] MEDS: Propofol 1,000 MG/100 ML VIAL IV PRN ×3 (03:45→23:04)
[2020-01-01 04:24] LABS: #Lymphocytes 0.5 thou/uL (1.20-3.40); #Monocytes 0.9 thou/uL (0.11-0.59); #Neutrophils 13.7 thou/uL (1.40-6.50); %Basophils 0.1 % (0.0-1.0); %Eosinophils 0.1 % (0.0-10.0); %Lymphocytes 3.2 % (21.0-51.0); %Monocytes 5.9 % (0.0-10.0); %Neutrophils 90.7 % (42.0-75.0); Hemoglobin 13.9 g/dL (14.0-18.0); Mean Corpuscular HGB CONC 33.6 g/dL (32.0-36.0); Mean Platelet Volume 9.1 fL (7.4-10.4); Platelet Count 153 thou/uL (130-400); RBC Distribution Width 12.2 % (11.5-14.5); Red Blood Cell (RBC) Count 4.09 mill/uL (4.70-6.10); White Blood Cell (WBC) Count 15.1 thou/uL (4.8-10.8)
[2020-01-01 04:46] LABS: Anion Gap 14 mmol/L (10-20); BUN (Urea Nitrogen) 11 mg/dL (8.4-25.7); Calc. Creatinine Clearance 120 mL/min (70-130); Calcium 7.2 mg/dL (7.8-10.44); Carbon Dioxide 22 mmol/L (23-31); Chloride 103 mmol/L (98-107); Estimated GFR-MDRD Greater than 90; Glucose 150 mg/dL (80-115); Magnesium 2.4 mg/dL (1.6-2.6); Potassium 3.6 mmol/L (3.5-5.1); Sodium 135 mmol/L (136-145)
[2020-01-01] MEDS: methylPREDNISolone Sod Succ 40 MG VIAL IVP SCH ×3 (05:55→21:03)
[2020-01-01] MEDS: Multivitamins, Adult 10 ML, Folic Acid 1 MG, Thiamine HCl 100 MG in Dextrose 5 %-0.45 %... IV SCH (05:55)
[2020-01-01] MEDS: hydrALAZINE 20 MG/ML VIAL SLOW IVP PRN ×2 (06:35→20:52)
[2020-01-01 08:03] LABS: Base Excess (BEa) 0.5 mEq/L (-2.0 to +3.0); CO2 Tension 27.6 mmHg (35.0-45.0); Calcium, Ionized 0.98 mmol/L (1.12-1.30); Carboxyhemoglobin (COHb) 0.9 gm% (0.0-3.0); Hemoglobin (Hb) 14.7 g/dL (14.0-18.0); O2 Tension (PaO2), arterial 86.4 mmHg (> 70.0); Potassium - ABG Lab 3.91 mmol/L (3.70-5.30); pH, Arterial 7.52 (7.35-7.45)
[2020-01-01 08:07] LABS: Puncture Site RRA
[2020-01-01] MEDS: Famotidine/PF 20 mg/2ml Vial SLOW IVP SCH ×2 (09:04→20:06)
[2020-01-01] MEDS: Polyethylene Glycol 3350 17 GM Packet PO SCH (09:04)
[2020-01-01] MEDS: Enoxaparin Sodium 40 MG/0.4 ML SYRINGE SC SCH (09:04)
[2020-01-01] MEDS: levETIRAcetam In NaCl (Iso-Os) 1,000 MG in Premix Bag 1 BAG IVPB SCH ×2 (09:05→20:05)
[2020-01-01] MEDS: Folic Acid 1 MG TAB PO SCH (09:05)
[2020-01-01] MEDS: Famotidine 20 MG TAB PO SCH ×2 (09:05→20:40)
[2020-01-01] MEDS: Labetalol HCl 100 MG/20 ML VIAL SLOW IVP PRN (09:08)
[2020-01-01 11:35] LABS: Vancomycin, Trough 8.4 ug/mL
[2020-01-01] MEDS: Metoprolol Tartrate 5 MG/5 ML VIAL IVP SCH ×3 (12:02→23:59)
[2020-01-01] MEDS: Vancomycin 1.5 GRAM/300 ML BAG 1.5 GM in Premix Bag 1 BAG IVPB SCH ×2 (12:02→23:59)
--- NOTE | 2020-01-01 12:06 | EKG ---
Test Reason : Blood Pressure : / mmHG Vent. Rate : 081 BPM Atrial Rate : 081 BPM P-R Int : 194 ms QRS Dur : 088 ms QT Int : 416 ms P-R-T Axes : 074 063 072 degrees QTc Int : 483 ms Normal sinus rhythm Prolonged QT Abnormal ECG Confirmed by VANESSA SCHMITZ ([id number]), marketing editor JAKE PHAM ([id number]) on 01/01/2020 12:05:45 PM Referred By: Confirmed By:VANESSA Agrawal
--- NOTE | 2020-01-01 16:23 | PDOC.HOSPP ---
- Subjective Encounter Date: 01/01/20 Encounter Time: 11:40 Subjective: on vent, not responding much, pupils constricted. EEG rpt reviewed, on propofal , versed, banana bag. BP labile, ordered IV scheduled lopressor for now. d/w RN. - Objective Vital Signs & Weight: Vital Signs (12 hours) Temp Pulse Resp BP Pulse Ox 01/01/20 15:01 89 152/83 H 01/01/20 14:00 19 01/01/20 12:00 99.7 F H 27 H 01/01/20 11:04 94 148/80 H 01/01/20 10:00 24 H 01/01/20 09:08 99 163/89 H 01/01/20 08:00 30 H 100 01/01/20 07:56 101 H 166/87 H 01/01/20 07:00 99.5 F 01/01/20 06:35 87 129/110 H 01/01/20 06:00 21 H Weight Admit Weight 185 lb Weight 185 lb 3.013 oz Most Recent Monitor Data Heart Rate from ECG 86 NIBP 157/80 NIBP BP-Mean 105 Respiration from ECG 6 SpO2 100 I&O: 12/31/19 01/01/20 01/02/20 06:59 06:59 06:59 Intake Total 1119 2632.4 Output Total 1000 1525 575 Balance 119 1107.4 -575 Result Diagrams: 01/01/20 03:30 01/01/20 03:30 Hospitalist ROS - Medication Medications: Active Medications Generic Name Dose Route Start Last Admin Trade Name Freq PRN Reason Stop Dose Admin Clonidine 0.1 mg 12/30/19 20:36 12/31/19 16:46 Catapres PO 0.1 mg BID PRN Administration SBP > 160 use second Enoxaparin Sodium 40 mg 01/01/20 09:00 01/01/20 09:04 Lovenox SC 40 mg 0900 CYNDI Administration Famotidine 20 mg 12/30/19 21:00 01/01/20 09:05 Pepcid PO Not Given BID CYNDI Famotidine 20 mg 12/30/19 21:00 01/01/20 09:04 Pepcid SLOW IVP 20 mg Q12HR CYNDI Administration Folic Acid 1 mg 12/31/19 09:00 05/16/20 09:05 Folvite PO 1 mg DAILY CYNDI Administration Hydralazine HCl 10 mg 12/30/19 20:36 01/01/20 06:35 Apresoline SLOW IVP 10 mg Q6H PRN Administration SBP GREATER THAN 160 Levetiracetam 1,000 mg/ Device 100 mls @ 200 mls/hr 12/30/19 21:00 01/01/20 09:05 IVPB 100 mls BID CYNDI Administration Piperacillin Sod/Tazobactam 100 mls @ 200 mls/hr 12/30/19 22:00 01/01/20 09: 05 Sod 3.375 gm/ Sodium Chloride IVPB 01/02/20 23:59 100 mls 0400,1000,1600,2200 CYNDI Administration Potassium Chloride 40 meq/ 270 mls @ 135 mls/hr 12/30/19 20:56 01/01/20 05:55 Sodium Chloride IVPB 270 mls ASDIR PRN Administration FOR SERUM K+ 2.5 - 3.5 Sodium Chloride 1,000 mls @ 100 mls/hr 12/31/19 00:15 01/01/20 01:42 Normal Saline 0.9% IV 1,000 mls .Q10H CYNDI Administration Multivitamins 10 ml/ Folic 1,011.2 mls @ 100 mls/hr 12/31/19 06:30 01/01/20 05:55 Acid 1 mg/ Thiamine HCl 100 mg IV 1,011.2 mls / Dextrose/Sodium Chloride Q24HR CYNDI Administration Vancomycin HCl 1.5 gm/ Device 300 mls @ 366.667 mls/hr 01/01/20 12:00 12:02 IVPB 01/03/20 12:01 300 mls 1200,2359 CYNDI Administration Labetalol HCl 20 mg 12/30/19 20:36 01/01/20 09:08 Normodyne SLOW IVP 20 mg Q4H PRN Administration SBP > 160 use third Methylprednisolone Sodium Succinate 20 mg 12/31/19 06:00 01/01/20 14:39 Solu-Medrol IVP 20 mg Q8HR CYNDI Administration Metoprolol Tartrate 5 mg 01/01/20 12:00 01/01/20 12:02 Lopressor IVP 5 mg Q6HR CYNDI Administration Morphine Sulfate 2 mg 12/30/19 20:58 12/31/19 20:22 Morphine SLOW IVP 01/29/20 20:58 2 mg Q1H PRN Administration BREAKTHROUGH PAIN/Agitation Polyethylene Glycol 17 gm 12/31/19 09:00 01/01/20 09:04 Miralax PO 17 gm DAILY CYNDI Administration Propofol 1,000 mg 12/30/19 20:58 01/01/20 14:41 Diprivan IV 01/29/20 20:58 1,000 mg INF PRN Administration TO ACHIEVE GOAL RASS Protocol - Exam General Appearance: awake alert General - other findings: on vent; AOX0 ENT: normocephalic atraumatic Neck: supple Heart: irregular Respiratory: CTAB, normal chest expansion Gastrointestinal: soft, normal bowel sounds Neurological: no new deficit Hosp A/P - Plan (1) Cardiac arrest Code(s): I46.9 - CARDIAC ARREST, CAUSE UNSPECIFIED Status: Acute (2) Anoxic brain injury, coma Status: Acute (3) Alcohol abuse and intoxication (4) Seizure disorder Code(s): G40.909 - EPILEPSY, UNSP, NOT INTRACTABLE, WITHOUT STATUS EPILEPTICUS Status: Acute Fall leading to non-displaced skull fractuure vs.. other - NS followed and no intervention, should heal on its own. * Post Cardiac arrest- ? etiology. this may be due to a seizure- given a prior history- EEG rpt reviewed * CT C-spine is negative for fracture * Neuro-surgery followed. * * Continue Vent support//levophed/propofal * * on vanc/zosyn; solumedrol, keppra palliative consult. overall poor prognosis. * Full code
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
[2020-01-01] MEDS: cloNIDine 0.1 MG TAB PO PRN (22:34)
[2020-01-02] MEDS: Piperacillin/Tazobactam 3.375 GM in Sodium Chloride 0.9% 100 ML IVPB SCH ×4 (03:22→21:18)
[2020-01-02 04:38] LABS: #Lymphocytes 0.8 thou/uL (1.20-3.40); #Monocytes 0.8 thou/uL (0.11-0.59); #Neutrophils 10.7 thou/uL (1.40-6.50); %Eosinophils 0.2 % (0.0-10.0); %Lymphocytes 6.5 % (21.0-51.0); %Monocytes 6.4 % (0.0-10.0); %Neutrophils 86.9 % (42.0-75.0); Hemoglobin 12.5 g/dL (14.0-18.0); Mean Corpuscular HGB CONC 32.7 g/dL (32.0-36.0); Mean Platelet Volume 9.3 fL (7.4-10.4); Platelet Count 146 thou/uL (130-400); RBC Distribution Width 12.2 % (11.5-14.5); Red Blood Cell (RBC) Count 3.78 mill/uL (4.70-6.10); White Blood Cell (WBC) Count 12.3 thou/uL (4.8-10.8)
[2020-01-02 05:02] LABS: Anion Gap 12 mmol/L (10-20); BUN (Urea Nitrogen) 12 mg/dL (8.4-25.7); Calc. Creatinine Clearance 126 mL/min (70-130); Calcium 6.8 mg/dL (7.8-10.44); Carbon Dioxide 21 mmol/L (23-31); Chloride 105 mmol/L (98-107); Estimated GFR-MDRD Greater than 90; Glucose 142 mg/dL (80-115); Magnesium 2.3 mg/dL (1.6-2.6); Potassium 3.6 mmol/L (3.5-5.1); Sodium 134 mmol/L (136-145)
[2020-01-02] MEDS: Metoprolol Tartrate 5 MG/5 ML VIAL IVP SCH ×3 (06:01→17:18)
[2020-01-02] MEDS: methylPREDNISolone Sod Succ 40 MG VIAL IVP SCH ×3 (06:02→21:14)
[2020-01-02 07:23] LABS: Actual Bicarbonate (HCO3a) 19.7 mEq/L (22-28); Base Excess (BEa) -2.3 mEq/L (-2.0 to +3.0); CO2 Tension 26.8 mmHg (35.0-45.0); Calcium, Ionized 1.03 mmol/L (1.12-1.30); Carboxyhemoglobin (COHb) 0.8 gm% (0.0-3.0); Hemoglobin (Hb) 12.9 g/dL (14.0-18.0); O2 Tension (PaO2), arterial 120.2 mmHg (> 70.0); Potassium - ABG Lab 3.52 mmol/L (3.70-5.30); pH, Arterial 7.49 (7.35-7.45)
[2020-01-02 07:24] LABS: Puncture Site RR
[2020-01-02] MEDS: Multivitamins, Adult 10 ML, Folic Acid 1 MG, Thiamine HCl 100 MG in Dextrose 5 %-0.45 %... IV SCH (07:28)
[2020-01-02] MEDS: Enoxaparin Sodium 40 MG/0.4 ML SYRINGE SC SCH (09:31)
[2020-01-02] MEDS: Famotidine/PF 20 mg/2ml Vial SLOW IVP SCH ×2 (09:31→21:14)
[2020-01-02] MEDS: Famotidine 20 MG TAB PO SCH ×2 (09:32→21:15)
[2020-01-02] MEDS: levETIRAcetam In NaCl (Iso-Os) 1,000 MG in Premix Bag 1 BAG IVPB SCH ×2 (09:32→21:13)
[2020-01-02] MEDS: Folic Acid 1 MG TAB PO SCH (09:32)
[2020-01-02] MEDS: Polyethylene Glycol 3350 17 GM Packet PO SCH (09:33)
--- NOTE | 2020-01-02 12:30 | PDOC.HOSPP ---
- Subjective Encounter Date: 01/02/20 Encounter Time: 09:40 Subjective: d/w RN/ pt responds for painful stimuli, trace cough, family driving from [place]. Will try to address code status with them. - Objective Vital Signs & Weight: Vital Signs (12 hours) Temp Pulse Resp BP Pulse Ox 01/02/20 12:00 23 H 01/02/20 11:00 99.1 F 01/02/20 10:46 80 156/80 H 01/02/20 10:00 24 H 01/02/20 09:00 98.8 F 01/02/20 08:00 94.4 F L 25 H 100 01/02/20 07:26 69 134/75 01/02/20 06:00 22 H 01/02/20 04:00 98.4 F 24 H 01/02/20 02:11 75 162/92 H 01/02/20 02:00 24 H Weight Admit Weight 185 lb Weight 185 lb 6.54 oz Most Recent Monitor Data Heart Rate from ECG 82 NIBP 166/86 NIBP BP-Mean 112 Respiration from ECG 26 SpO2 100 I&O: 01/01/20 01/02/20 01/03/20 06:59 06:59 06:59 Intake Total 2632.4 3429 Output Total 1525 1810 435 Balance 1107.4 1619 -435 Result Diagrams: 01/02/20 04:05 01/02/20 04:05 Hospitalist ROS - Medication Medications: Active Medications Generic Name Dose Route Start Last Admin Trade Name Freq PRN Reason Stop Dose Admin Clonidine 0.1 mg 12/30/19 20:36 01/01/20 22:34 Catapres PO 0.1 mg BID PRN Administration SBP > 160 use second Enoxaparin Sodium 40 mg 01/01/20 09:00 01/02/20 09:31 Lovenox SC 40 mg 0900 CYNDI Administration Famotidine 20 mg 12/30/19 21:00 01/02/20 09:32 Pepcid PO Not Given BID CYNDI Famotidine 20 mg 12/30/19 21:00 01/02/20 09:31 Pepcid SLOW IVP 20 mg Q12HR CYNDI Administration Folic Acid 1 mg 12/31/19 09:00 01/02/20 09:32 Folvite PO 1 mg DAILY CYNDI Administration Hydralazine HCl 10 mg 12/30/19 20:36 01/01/20 20:52 Apresoline SLOW IVP 10 mg Q6H PRN Administration SBP GREATER THAN 160 Levetiracetam 1,000 mg/ Device 100 mls @ 200 mls/hr 12/30/19 21:00 01/02/20 09:32 IVPB 100 mls BID CYNDI Administration Piperacillin Sod/Tazobactam 100 mls @ 200 mls/hr 12/30/19 22:00 01/02/20 09: 31 Sod 3.375 gm/ Sodium Chloride IVPB 01/02/20 23:59 100 mls 0400,1000,1600,2200 CYNDI Administration Potassium Chloride 40 meq/ 270 mls @ 135 mls/hr 12/30/19 20:56 01/01/20 05:55 Sodium Chloride IVPB 270 mls ASDIR PRN Administration FOR SERUM K+ 2.5 - 3.5 Sodium Chloride 1,000 mls @ 100 mls/hr 12/31/19 00:15 01/01/20 20:05 Normal Saline 0.9% IV 1,000 mls .Q10H CYNDI Administration Multivitamins 10 ml/ Folic 1,011.2 mls @ 100 mls/hr 12/31/19 06:30 01/02/20 07:28 Acid 1 mg/ Thiamine HCl 100 mg IV 1,011.2 mls / Dextrose/Sodium Chloride Q24HR CYNDI Administration Vancomycin HCl 1.5 gm/ Device 300 mls @ 366.667 mls/hr 01/01/20 12:00 23:59 IVPB 01/03/20 12:01 300 mls 1200,2359 CYNDI Administration Labetalol HCl 20 mg 12/30/19 20:36 01/01/20 09:08 Normodyne SLOW IVP 20 mg Q4H PRN Administration SBP > 160 use third Methylprednisolone Sodium Succinate 20 mg 12/31/19 06:00 01/02/20 06:02 Solu-Medrol IVP 20 mg Q8HR CYNDI Administration Metoprolol Tartrate 5 mg 01/01/20 12:00 01/02/20 06:01 Lopressor IVP 5 mg Q6HR CYNDI Administration Morphine Sulfate 2 mg 12/30/19 20:58 12/31/19 20:22 Morphine SLOW IVP 01/29/20 20:58 2 mg Q1H PRN Administration BREAKTHROUGH PAIN/Agitation Polyethylene Glycol 17 gm 12/31/19 09:00 01/02/20 09:33 Miralax PO 17 gm DAILY CYNDI Administration Propofol 1,000 mg 12/30/19 20:58 01/01/20 23:04 Diprivan IV 01/29/20 20:58 1,000 mg INF PRN Administration TO ACHIEVE GOAL RASS Protocol - Exam General Appearance: ill appearing General - other findings: on vent Eye: PERRL Neck: supple, symmetric Heart: RRR Respiratory: CTAB, normal chest expansion Gastrointestinal: soft, normal bowel sounds Neurological: no focal deficits Psychiatric: not oriented Hosp A/P - Plan (1) Cardiac arrest Code(s): I46.9 - CARDIAC ARREST, CAUSE UNSPECIFIED Status: Acute (2) Anoxic brain injury, coma Status: Acute (3) Alcohol abuse and intoxication (4) Seizure disorder Code(s): G40.909 - EPILEPSY, UNSP, NOT INTRACTABLE, WITHOUT STATUS EPILEPTICUS Status: Acute Fall leading to non-displaced skull fractuure vs.. other - NS followed and no intervention, should heal on its own. * Post Cardiac arrest- ? etiology. this may be due to a seizure- given a prior history- EEG rpt reviewed * CT C-spine is negative for fracture * Neuro-surgery followed. * * Continue Vent support//levophed/propofal * on vanc/zosyn; solumedrol, keppra palliative consult. overall poor prognosis. family driving from [place]. Will try to address code status with them. * Full code
[2020-01-02] MEDS: Sodium Chloride 0.9% 1,000 ML IV SCH ×2 (12:46→21:17)
[2020-01-02] MEDS: Vancomycin 1.5 GRAM/300 ML BAG 1.5 GM in Premix Bag 1 BAG IVPB SCH (13:04)
[2020-01-02] MEDS: hydrALAZINE 20 MG/ML VIAL SLOW IVP PRN ×2 (13:36→21:11)
[2020-01-02] MEDS: Labetalol HCl 100 MG/20 ML VIAL SLOW IVP PRN (16:24)
--- NOTE | 2020-01-02 16:25 | PRG ---
DATE OF SERVICE: 01/02/2020 SUBJECTIVE: There has been no significant change in Mr. Arroyo' status over the past 24 hours. At times, he does not have any response and at others, will have a slight opening of his eyes to sternal stimuli. I have asked that his family come to see him. They have arrived from [place] (4 sisters). I have explained the condition to him as well as his prognosis. They state that if the patient were capable of making a decision at this time, he would not want resuscitative care, CPR, tracheostomy, or any other intervention. This is confirmed by all the sisters in complete agreement. PHYSICAL EXAMINATION: VITAL SIGNS: Blood pressure 161/82, he is on 30% oxygen with saturation 100%, heart rate is 82, and temperature 99.0. Earlier this morning, he was hypothermic core to 95 degrees. GENERAL: He is nonresponsive to painful stimuli except slight opening of his eyes. There is no response to verbal stimuli. HEENT: Shows no corneals. No gag. No blink. Pupils are difficult to assess and do not appear reactive. LUNGS: Coarse rhonchi. HEART: Regular without murmur. ABDOMEN: Soft. There is no organomegaly. Bowel sounds are normal. LABORATORY DATA: White count 12,300, hemoglobin 12.5, platelet count 146,000. Blood gas includes pH 7.49, CO2 of 27, pO2 of 120, and bicarbonate of 19. This was obtained with a rate of 12, 500, and 35%. Electrolytes are reviewed. IMPRESSION: 1. Severe anoxic injury following downtime of unknown duration. The patient has minimal responses, which at this time do not meet brain criteria. 2. Alcohol intoxication, acute on chronic. PLAN: We will continue supportive care at least for the next several days. The family is in agreement that they do not wish CPR. At such time as we decide to discontinue support, they wish him to be extubated and receive comfort palliative care. They would not wish him reintubated if he is extubated. They do not wish a tracheostomy nor do they wish a PEG feeding tube. In light of the above recommendations, we will continue current therapy for another 24 to 48 hours, at which time the decision to terminate care will be made. Today, critical care time rendered 30 minutes. Job ID: [id number]
[2020-01-02 22:33] LABS: Vancomycin, Trough 10.4 ug/mL
[2020-01-03] MEDS: Vancomycin HCl 1.75 GM in Sodium Chloride 0.9% 500 ML IVPB SCH ×2 (00:10→11:19)
[2020-01-03] MEDS: Metoprolol Tartrate 5 MG/5 ML VIAL IVP SCH ×5 (00:10→23:07)
[2020-01-03] MEDS: cloNIDine 0.1 MG TAB PO PRN (01:28)
[2020-01-03] MEDS: Morphine 2 MG/ML SYRINGE SLOW IVP PRN ×2 (02:11→05:32)
[2020-01-03] MEDS: methylPREDNISolone Sod Succ 40 MG VIAL IVP SCH ×3 (05:32→21:21)
[2020-01-03] MEDS: hydrALAZINE 20 MG/ML VIAL SLOW IVP PRN ×2 (06:04→18:08)
[2020-01-03] MEDS: Lorazepam 2 MG/ML VIAL SLOW IVP PRN ×3 (06:05→21:21)
[2020-01-03 08:15] LABS: Actual Bicarbonate (HCO3a) 21.2 mEq/L (22-28); Base Excess (BEa) -1.3 mEq/L (-2.0 to +3.0); CO2 Tension 29.2 mmHg (35.0-45.0); Calcium, Ionized 1.02 mmol/L (1.12-1.30); Hemoglobin (Hb) 13.2 g/dL (14.0-18.0); Potassium - ABG Lab 3.76 mmol/L (3.70-5.30); pH, Arterial 7.48 (7.35-7.45)
[2020-01-03 08:22] LABS: Puncture Site L.R.
--- NOTE | 2020-01-03 09:31 | PRG ---
DATE OF SERVICE: 01/03/2020 TIME SPENT: 35 minutes Critical Care time. SUBJECTIVE: The patient remains intubated on mechanical ventilation. For me, he is largely unresponsive today. I cannot get him to respond to stimuli. OBJECTIVE: VITAL SIGNS: Temperature 97.8, pulse 69, blood pressure 168/86, O2 saturation 100%. Intake 3092, output 1705. HEENT: Unremarkable. NECK: No adenopathy or JVD. LUNGS: Clear anteriorly. CARDIAC: S1 and S2. Regular. ABDOMEN: Soft. EXTREMITIES: Edematous. LABORATORY DATA: White blood cell count 12, hematocrit 38, platelet count 146. Sodium 134, BUN 12, creatinine 0.6, glucose 142. A pH 7.48, pCO2 of 29, pO2 of 92. ASSESSMENT AND PLAN: 1. Severe anoxic brain injury without evidence of improvement since admission. 2. Status post cardiopulmonary arrest. RECOMMENDATIONS: 1. We would fully support withdrawal of care if his family wants to proceed. 2. Palliative Care has been consulted. Job ID: [id number]
[2020-01-03] MEDS: Enoxaparin Sodium 40 MG/0.4 ML SYRINGE SC SCH (10:33)
[2020-01-03] MEDS: Famotidine/PF 20 mg/2ml Vial SLOW IVP SCH ×2 (10:34→20:29)
[2020-01-03] MEDS: Folic Acid 1 MG TAB PO SCH (10:34)
[2020-01-03] MEDS: Famotidine 20 MG TAB PO SCH ×2 (10:35→20:29)
[2020-01-03] MEDS: levETIRAcetam In NaCl (Iso-Os) 1,000 MG in Premix Bag 1 BAG IVPB SCH ×2 (10:35→20:28)
[2020-01-03] MEDS: Polyethylene Glycol 3350 17 GM Packet PO SCH (10:36)
[2020-01-03] MEDS: Sodium Chloride 0.9% 1,000 ML IV SCH ×2 (10:36→17:35)
[2020-01-03] MEDS: Multivitamins, Adult 10 ML, Folic Acid 1 MG, Thiamine HCl 100 MG in Dextrose 5 %-0.45 %... IV SCH (11:19)
--- NOTE | 2020-01-03 14:29 | PDOC.HOSPP ---
- Subjective Encounter Date: 01/03/20 Encounter Time: 11:50 Subjective: still on vent. plan to withdrawl of care after d/w family. - Objective Vital Signs & Weight: Vital Signs (12 hours) Temp Pulse Resp BP Pulse Ox 01/03/20 14:00 17 01/03/20 12:00 17 01/03/20 11:00 97.5 F L 01/03/20 10:31 67 176/92 H 01/03/20 10:00 16 01/03/20 07:45 67 158/85 H 01/03/20 07:43 19 100 01/03/20 07:00 97.8 F 01/03/20 06:04 71 200/86 H 01/03/20 06:00 17 01/03/20 04:00 97.9 F 22 H 01/03/20 02:27 71 167/87 H Weight Admit Weight 185 lb Weight 186 lb 14.4 oz Most Recent Monitor Data Heart Rate from ECG 68 NIBP 154/81 NIBP BP-Mean 105 Respiration from ECG 17 SpO2 100 I&O: 01/02/20 01/03/20 01/04/20 06:59 06:59 06:59 Intake Total 3429 3092 Output Total 1810 1705 530 Balance 1619 1387 -530 Result Diagrams: 01/02/20 04:05 01/02/20 04:05 Hospitalist ROS - Medication Medications: Active Medications Generic Name Dose Route Start Last Admin Trade Name Freq PRN Reason Stop Dose Admin Clonidine 0.1 mg 12/30/19 20:36 01/03/20 01:28 Catapres PO 0.1 mg BID PRN Administration SBP > 160 use second Enoxaparin Sodium 40 mg 01/01/20 09:00 01/03/20 10:33 Lovenox SC 40 mg 0900 CYNDI Administration Famotidine 20 mg 12/30/19 21:00 01/03/20 10:35 Pepcid PO Not Given BID CYNDI Famotidine 20 mg 12/30/19 21:00 01/03/20 10:34 Pepcid SLOW IVP 20 mg Q12HR CYNDI Administration Folic Acid 1 mg 12/31/19 09:00 01/03/20 10:34 Folvite PO 1 mg DAILY CYNDI Administration Hydralazine HCl 10 mg 12/30/19 20:36 01/03/20 06:04 Apresoline SLOW IVP 10 mg Q6H PRN Administration SBP GREATER THAN 160 Levetiracetam 1,000 mg/ Device 100 mls @ 200 mls/hr 12/30/19 21:00 01/03/20 10:35 IVPB 100 mls BID CYNDI Administration Potassium Chloride 40 meq/ 270 mls @ 135 mls/hr 12/30/19 20:56 01/01/20 05:55 Sodium Chloride IVPB 270 mls ASDIR PRN Administration FOR SERUM K+ 2.5 - 3.5 Sodium Chloride 1,000 mls @ 100 mls/hr 12/31/19 00:15 01/03/20 10:36 Normal Saline 0.9% IV 1,000 mls .Q10H CYNDI Administration Multivitamins 10 ml/ Folic 1,011.2 mls @ 100 mls/hr 12/31/19 06:30 01/03/20 11:19 Acid 1 mg/ Thiamine HCl 100 mg IV 1,011.2 mls / Dextrose/Sodium Chloride Q24HR CYNDI Administration Labetalol HCl 20 mg 12/30/19 20:36 01/02/20 16:24 Normodyne SLOW IVP 20 mg Q4H PRN Administration SBP > 160 use third Lorazepam 2 mg 12/30/19 20:58 01/03/20 06:05 Ativan SLOW IVP 01/29/20 20:58 2 mg Q1H PRN Administration Breakthrough agitation Methylprednisolone Sodium Succinate 20 mg 12/31/19 06:00 01/03/20 13:39 Solu-Medrol IVP 20 mg Q8HR CYNDI Administration Metoprolol Tartrate 5 mg 01/01/20 12:00 01/03/20 11:19 Lopressor IVP 5 mg Q6HR CYNDI Administration Morphine Sulfate 2 mg 12/30/19 20:58 01/03/20 05:32 Morphine SLOW IVP 01/29/20 20:58 2 mg Q1H PRN Administration BREAKTHROUGH PAIN/Agitation Polyethylene Glycol 17 gm 12/31/19 09:00 01/03/20 10:36 Miralax PO 17 gm DAILY CYNDI Administration Propofol 1,000 mg 12/30/19 20:58 01/01/20 23:04 Diprivan IV 01/29/20 20:58 1,000 mg INF PRN Administration TO ACHIEVE GOAL RASS Protocol - Exam General Appearance: NAD, ill appearing General - other findings: on vent Eye: PERRL ENT: normocephalic atraumatic Neck: supple Heart: RRR Respiratory: rhonchi Respiratory - other findings: intubated Gastrointestinal: normal bowel sounds Psychiatric: not oriented Hosp A/P - Plan (1) Cardiac arrest Code(s): I46.9 - CARDIAC ARREST, CAUSE UNSPECIFIED Status: Acute (2) Anoxic brain injury, coma Status: Acute (3) Alcohol abuse and intoxication (4) Seizure disorder Code(s): G40.909 - EPILEPSY, UNSP, NOT INTRACTABLE, WITHOUT STATUS EPILEPTICUS Status: Acute Fall leading to non-displaced skull fractuure vs.. other - NS followed and no intervention, should heal on its own. * Post Cardiac arrest- ? etiology. this may be due to a seizure- given a prior history- EEG rpt reviewed * CT C-spine is negative for fracture * Neuro-surgery followed. * * Continue Vent support//levophed/propofal * on vanc/zosyn; solumedrol, keppra palliative consult. overall poor prognosis. Possible withdrawl of care. * Full code
--- NOTE | 2020-01-03 15:40 | PDOC.PALCO ---
Palliative Care Consult - Consult Details Requesting Physician: Dr Berg Reason for Consult: goals of care, assistance with communication prognosis/ disease, family support - Pertinent HPI 69 year old male was taken to the emergency room in [place] after falling and hitting his head, On arrival he was found to had pulseless activity, ACLS/ CPR with ROSC. Mr Arroyo was intubated, found to have a blood alcohol of 300 and reported to be intoxicated just prior to fall. Transferred to [facility] for higher level of care. CT and chest x-ray were negative for any contributing findings. - Pertinent PMH Hypertension, alcohol abuse, seizures - Social History Smoking Status: Current every day smoker Alcohol Use: heavy, daily Drug Use History: none Living Situation: independent - Medications MAR Reviewed: Yes - Allergies Allergies/Adverse Reactions: Allergies Allergy/AdvReac Type Severity Reaction Status Date / Time No Known Drug Allergies Allergy Verified 08/11/19 02:38 - Subjective Mechanical ventilation, sedated - ROS Non Response: due to endotracheal tube, due to mental status - Objective Vital Signs: Vital Signs - Most Recent Temp Pulse Resp BP Pulse Ox 97.5 F L 68 17 168/84 H 100 01/03/20 11:00 01/03/20 14:33 01/03/20 14:00 01/03/20 14:33 01/03/20 07:43 Palliative Performance Scale: 10 - Physical Exam Constitutional: encephalitic, ill appearing HEENT: moist MMs Deviation from normal: mechanical ventilation Cardiovascular: RRR Gastrointestinal: soft, positive bowel sounds Genitourinary: adams catheter Musculoskeletal: pulses present Deviation from normal: sedated, does not respond to gentle stimuli Skin: cap refill <2 seconds Deviation from normal: sedated, encephalopathic - Problem List (1) Palliative care encounter Code(s): Z51.5 - ENCOUNTER FOR PALLIATIVE CARE Current Visit: Yes Status: Acute (2) Respiratory failure requiring intubation Code(s): J96.90 - RESPIRATORY FAILURE, UNSP, UNSP W HYPOXIA OR HYPERCAPNIA Current Visit: Yes Status: Acute (3) Anoxic brain injury Current Visit: Yes Status: Acute (4) Cardiac arrest Code(s): I46.9 - CARDIAC ARREST, CAUSE UNSPECIFIED Current Visit: Yes Status : Acute (5) Alcohol abuse Code(s): F10.10 - ALCOHOL ABUSE, UNCOMPLICATED Current Visit: No Status: Acute (6) Alcohol withdrawal Code(s): F10.239 - ALCOHOL DEPENDENCE WITH WITHDRAWAL, UNSPECIFIED Current Visit: No Status: Acute - Plan/Recommendations Plan: Remains intubated with poor prognosis/meaningful recovery. Family understanding of outcomes. Palliative Care has communicated with family, they are to further discuss and decide 01/04/2020 for compassionate extubation. Lavinia to discuss with Niya. Will continue to support with emotional support/therapeutic listening. Please also refer to Jarvis Baker RN notes in note section. [50] minutes spent on this encounter with >50% of the time in counseling and coordination of care. Thank you for this very appropriate consult.
[2020-01-04] MEDS: Lorazepam 2 MG/ML VIAL SLOW IVP PRN ×2 (00:29→02:44)
[2020-01-04] MEDS: hydrALAZINE 20 MG/ML VIAL SLOW IVP PRN ×2 (01:58→18:04)
[2020-01-04] MEDS: Morphine 2 MG/ML SYRINGE SLOW IVP PRN ×2 (03:00→18:04)
[2020-01-04] MEDS: Sodium Chloride 0.9% 1,000 ML IV SCH ×2 (04:25→14:01)
[2020-01-04] MEDS: Metoprolol Tartrate 5 MG/5 ML VIAL IVP SCH ×3 (06:00→17:06)
[2020-01-04] MEDS: methylPREDNISolone Sod Succ 40 MG VIAL IVP SCH ×2 (06:00→14:01)
[2020-01-04 06:13] VITALS: BMI 30.9
[2020-01-04] MEDS: Multivitamins, Adult 10 ML, Folic Acid 1 MG, Thiamine HCl 100 MG in Dextrose 5 %-0.45 %... IV SCH (07:19)
[2020-01-04 07:47] LABS: Actual Bicarbonate (HCO3a) 21.4 mEq/L (22-28); Base Excess (BEa) -1.3 mEq/L (-2.0 to +3.0); CO2 Tension 30.2 mmHg (35.0-45.0); Calcium, Ionized 1.05 mmol/L (1.12-1.30); Hemoglobin (Hb) 13.3 g/dL (14.0-18.0); O2 Tension (PaO2), arterial 80.2 mmHg (> 70.0); Potassium - ABG Lab 3.78 mmol/L (3.70-5.30); pH, Arterial 7.47 (7.35-7.45)
[2020-01-04 07:52] LABS: Puncture Site L.R.
[2020-01-04 08:03] LABS: #Lymphocytes 0.8 thou/uL (1.20-3.40); #Neutrophils 10.6 thou/uL (1.40-6.50); %Eosinophils 0.1 % (0.0-10.0); %Lymphocytes 6.1 % (21.0-51.0); %Monocytes 8.4 % (0.0-10.0); %Neutrophils 85.4 % (42.0-75.0); Hemoglobin 12.8 g/dL (14.0-18.0); Mean Corpuscular HGB CONC 33.9 g/dL (32.0-36.0); Mean Corpuscular Hemoglobin 34.1 pg (27.0-31.0); Mean Platelet Volume 8.3 fL (7.4-10.4); Platelet Count 189 thou/uL (130-400); RBC Distribution Width 11.6 % (11.5-14.5); Red Blood Cell (RBC) Count 3.75 mill/uL (4.70-6.10); White Blood Cell (WBC) Count 12.4 thou/uL (4.8-10.8)
[2020-01-04] MEDS: Famotidine/PF 20 mg/2ml Vial SLOW IVP SCH (09:20)
[2020-01-04] MEDS: Enoxaparin Sodium 40 MG/0.4 ML SYRINGE SC SCH (09:20)
[2020-01-04] MEDS: Famotidine 20 MG TAB PO SCH (09:21)
[2020-01-04] MEDS: Folic Acid 1 MG TAB PO SCH (09:21)
[2020-01-04] MEDS: levETIRAcetam In NaCl (Iso-Os) 1,000 MG in Premix Bag 1 BAG IVPB SCH (09:22)
[2020-01-04] MEDS: Polyethylene Glycol 3350 17 GM Packet PO SCH (09:22)
--- NOTE | 2020-01-04 09:27 | PRG ---
DATE OF SERVICE: 01/04/2020 TIME SPENT: 35 minutes of critical care time. SUBJECTIVE: The patient remains intubated on mechanical ventilation. There have been no acute changes overnight. OBJECTIVE: VITAL SIGNS: Temperature 98.0, pulse 60, blood pressure 163/80, and O2 saturation 100%. Intake 2961, output 2000. NEUROLOGIC: The only neurologic reflex I can detect is spontaneous respirations. His pupils are poorly reactive. He has no extraocular movements. He has no oculocephalic reflex. He has no withdrawal to pain. He has no gag reflex. HEENT: Remarkable for muddy sclera. NECK: No adenopathy or JVD. LUNGS: Coarse rhonchi. CARDIAC: S1 and S2. Regular. ABDOMEN: Soft. EXTREMITIES: No edema. No chest x-ray was done today. LABORATORY DATA: ABG; pH 7.47, pCO2 of 30, pO2 of 80 on SIMV rate 12, tidal volume 500, PEEP 5, pressure support 10, and FiO2 of 30%. White blood cell count 12.4, hematocrit 37.6, and platelet count 189. ASSESSMENT: 1. Severe anoxic brain injury without evidence of recovery. 2. Acute respiratory failure, requiring mechanical ventilation. PLAN: This case is hopeless. The patient has no reasonable hope for functional recovery. The family has made him a DNR. Apparently, family is going to meet today to decide for compassionate extubation. I think that is really the only reasonable way to proceed here. For the time being, we are just doing very conservative things until the family can come to a final decision. Job ID: [id number]
[2020-01-04] MEDS ORDERED: Atropine Sulfate 1% Ophth Soln 5 ml Bottle PO PRN (14:17)
--- NOTE | 2020-01-04 14:21 | PDOC.PALPN ---
Palliative Progress Note - Subjective Mechanical ventilation, sedation - Objective Vital Signs: Vital Signs - Most Recent Temp Pulse Resp BP Pulse Ox 98.0 F 67 19 156/78 H 100 01/04/20 11:00 01/04/20 10:36 01/04/20 14:00 01/04/20 10:36 01/04/20 07:20 - Physical Exam Constitutional: encephalitic, ill appearing HEENT: EOMI, moist MMs Respiratory: diminished lung sound Deviation from normal: mechanical ventilation Cardiovascular: RRR Gastrointestinal: soft Genitourinary: adams catheter Musculoskeletal: no cyanosis Deviation from normal: sedated Skin: cap refill <2 seconds Deviation from normal: encephalopathic - Assessment (1) Palliative care encounter Code(s): Z51.5 - ENCOUNTER FOR PALLIATIVE CARE Current Visit: Yes Status: Acute (2) Respiratory failure requiring intubation Code(s): J96.90 - RESPIRATORY FAILURE, UNSP, UNSP W HYPOXIA OR HYPERCAPNIA Current Visit: Yes Status: Acute (3) Anoxic brain injury Current Visit: Yes Status: Acute (4) Cardiac arrest Code(s): I46.9 - CARDIAC ARREST, CAUSE UNSPECIFIED Current Visit: Yes Status : Acute (5) Alcohol abuse Code(s): F10.10 - ALCOHOL ABUSE, UNCOMPLICATED Current Visit: No Status: Acute (6) Alcohol withdrawal Code(s): F10.239 - ALCOHOL DEPENDENCE WITH WITHDRAWAL, UNSPECIFIED Current Visit: No Status: Acute - Plan Plan: Palliative Care has communicated with patient siblings/family. They are in agreement for compassionate extubation with comfort measures. They have all expressed they have "said their goodbys" and do not desire to be present for extubation or return to see him. Jarvis Baker RNsub arc operator awaiting to talk to one more sibling at 4:30 to confirm compassionate extubation. Plan is after last sibling agrees, family is requesting physicians proceed with extubation when they desire. Medications added to mitigate secretions. Please refer to Jarvis Baker RNsub arc operator notes in note section. [30] minutes spent on this encounter with >50% of the time in counseling and coordination of care. - ROS Non Response: due to endotracheal tube, due to mental status
--- NOTE | 2020-01-04 14:52 | PDOC.HOSPP ---
- Subjective Encounter Date: 01/04/20 Encounter Time: 11:50 Subjective: no change; stable on the vent. no neurological sign of any improvement. - Objective Vital Signs & Weight: Vital Signs (12 hours) Temp Pulse Resp BP Pulse Ox 01/04/20 14:00 19 01/04/20 12:00 16 01/04/20 11:00 98.0 F 01/04/20 10:36 67 156/78 H 01/04/20 10:00 18 01/04/20 08:00 18 01/04/20 07:20 100 01/04/20 07:18 69 150/79 H 01/04/20 07:00 98.0 F 01/04/20 06:00 16 01/04/20 04:00 97.7 F 01/04/20 03:55 67 165/82 H Weight Admit Weight 185 lb Weight 192 lb 3.889 oz Most Recent Monitor Data Heart Rate from ECG 69 NIBP 166/87 NIBP BP-Mean 113 Respiration from ECG 18 SpO2 100 I&O: 01/03/20 01/04/20 01/05/20 06:59 06:59 06:59 Intake Total 3092 2961 Output Total 1705 1999 535 Balance 1387 961 -535 Result Diagrams: 01/04/20 07:55 01/02/20 04:05 Hospitalist ROS - Medication Medications: Active Medications Generic Name Dose Route Start Last Admin Trade Name Freq PRN Reason Stop Dose Admin Clonidine 0.1 mg 12/30/19 20:36 01/03/20 01:28 Catapres PO 0.1 mg BID PRN Administration SBP > 160 use second Enoxaparin Sodium 40 mg 01/01/20 09:00 01/04/20 09:20 Lovenox SC 40 mg 0900 CYNDI Administration Famotidine 20 mg 12/30/19 21:00 01/04/20 09:21 Pepcid PO Not Given BID CYNDI Famotidine 20 mg 12/30/19 21:00 01/04/20 09:20 Pepcid SLOW IVP 20 mg Q12HR CYNDI Administration Folic Acid 1 mg 12/31/19 09:00 01/04/20 09:21 Folvite PO 1 mg DAILY CYNDI Administration Hydralazine HCl 10 mg 12/30/19 20:36 01/04/20 01:58 Apresoline SLOW IVP 10 mg Q6H PRN Administration SBP GREATER THAN 160 Levetiracetam 1,000 mg/ Device 100 mls @ 200 mls/hr 12/30/19 21:00 01/04/20 09:22 IVPB 100 mls BID CYNDI Administration Potassium Chloride 40 meq/ 270 mls @ 135 mls/hr 12/30/19 20:56 01/01/20 05:55 Sodium Chloride IVPB 270 mls ASDIR PRN Administration FOR SERUM K+ 2.5 - 3.5 Sodium Chloride 1,000 mls @ 100 mls/hr 12/31/19 00:15 01/04/20 14:01 Normal Saline 0.9% IV 1,000 mls .Q10H CYNDI Administration Multivitamins 10 ml/ Folic 1,011.2 mls @ 100 mls/hr 12/31/19 06:30 01/04/20 07:19 Acid 1 mg/ Thiamine HCl 100 mg IV 1,011.2 mls / Dextrose/Sodium Chloride Q24HR CYNDI Administration Labetalol HCl 20 mg 12/30/19 20:36 01/02/20 16:24 Normodyne SLOW IVP 20 mg Q4H PRN Administration SBP > 160 use third Lorazepam 2 mg 12/30/19 20:58 01/04/20 02:44 Ativan SLOW IVP 01/29/20 20:58 2 mg Q1H PRN Administration Breakthrough agitation Methylprednisolone Sodium Succinate 20 mg 12/31/19 06:00 01/04/20 14:01 Solu-Medrol IVP 20 mg Q8HR CYNDI Administration Metoprolol Tartrate 5 mg 01/01/20 12:00 01/04/20 12:47 Lopressor IVP 5 mg Q6HR CYNDI Administration Morphine Sulfate 2 mg 12/30/19 20:58 01/04/20 03:00 Morphine SLOW IVP 01/29/20 20:58 2 mg Q1H PRN Administration BREAKTHROUGH PAIN/Agitation Polyethylene Glycol 17 gm 12/31/19 09:00 01/04/20 09:22 Miralax PO 17 gm DAILY CYNDI Administration Propofol 1,000 mg 12/30/19 20:58 01/01/20 23:04 Diprivan IV 01/29/20 20:58 1,000 mg INF PRN Administration TO ACHIEVE GOAL RASS Protocol - Exam General - other findings: AOx0, vent ENT: normocephalic atraumatic Neck: supple Heart: RRR Respiratory: normal chest expansion, rales, rhonchi Gastrointestinal: soft, normal bowel sounds Neurological - other findings: no sign of neuro recovery Hosp A/P - Plan (1) Cardiac arrest Code(s): I46.9 - CARDIAC ARREST, CAUSE UNSPECIFIED Status: Acute (2) Anoxic brain injury, coma Status: Acute (3) Alcohol abuse and intoxication (4) Seizure disorder Code(s): G40.909 - EPILEPSY, UNSP, NOT INTRACTABLE, WITHOUT STATUS EPILEPTICUS Status: Acute Fall leading to non-displaced skull fractuure vs.. other - NS followed and no intervention, should heal on its own. * Post Cardiac arrest- ? etiology. this may be due to a seizure- given a prior history- EEG rpt reviewed * CT C-spine is negative for fracture * Neuro-surgery followed. * * Continue Vent support//levophed/propofal * on vanc/zosyn; solumedrol, keppra palliative helping us. overall poor prognosis. Possible withdrawl of care. DNAR.
[2020-01-04] MEDS ORDERED: Scopolamine 1.5 mg/72 hour Patch TD SCH (15:00)
[2020-01-04] MEDS: Morphine 4 MG/ML VIAL SLOW IVP PRN ×9 (18:40→21:22)
--- NOTE | 2020-01-05 12:43 | PDOC.HOSPP ---
- Subjective Encounter Date: 01/05/20 Encounter Time: 08:45 Subjective: pt was extruated and transferred to the floor, crackles and snoring--mouth breathing. not responding for verbal and tactile stimuli. d/w hospice case manager about hospice and dtrs involvement. appreciate palliative following with us. - Objective Vital Signs & Weight: Vital Signs (12 hours) Temp Pulse Resp BP Pulse Ox 01/05/20 09:30 97.8 F 92 22 H 121/65 94 L 01/05/20 03:47 97.9 F 103 H 28 H 133/62 88 L Weight Admit Weight 185 lb Weight 192 lb 3.889 oz Most Recent Monitor Data Heart Rate from ECG 97 NIBP 142/80 NIBP BP-Mean 100 Respiration from ECG 21 SpO2 97 I&O: 01/04/20 01/05/20 01/06/20 06:59 06:59 06:59 Intake Total 2961 1118 Output Total 1999 2350 Balance 961 -1232 Result Diagrams: 01/04/20 07:55 01/02/20 04:05 Hospitalist ROS - Medication Medications: Active Medications Generic Name Dose Route Start Last Admin Trade Name Freq PRN Reason Stop Dose Admin Morphine Sulfate 2 mg 12/30/19 20:58 01/04/20 18:04 Morphine SLOW IVP 01/29/20 20:58 2 mg Q1H PRN Administration BREAKTHROUGH PAIN/Agitation Morphine Sulfate 4 mg 01/04/20 17:18 01/04/20 21:22 Morphine SLOW IVP 4 mg Q5MIN PRN Administration AIR HUNGER - Exam General Appearance: ill appearing General - other findings: AOx0 Neck: supple Heart: RRR Respiratory: normal chest expansion, rales, rhonchi Gastrointestinal: soft, diminished bowl sounds Neurological: no focal deficits Psychiatric: somnolent, lethargic Hosp A/P - Plan (1) Cardiac arrest Code(s): I46.9 - CARDIAC ARREST, CAUSE UNSPECIFIED Status: Acute (2) Anoxic brain injury, coma Status: Acute (3) Alcohol abuse and intoxication (4) Seizure disorder Code(s): G40.909 - EPILEPSY, UNSP, NOT INTRACTABLE, WITHOUT STATUS EPILEPTICUS Status: Acute Fall leading to non-displaced skull fractuure vs.. other - NS followed and no intervention, should heal on its own. * Post Cardiac arrest- ? etiology. this may be due to a seizure- given a prior history- EEG rpt reviewed * CT C-spine is negative for fracture * Neuro-surgery followed. * * Continue Vent support//levophed/propofal * on vanc/zosyn; solumedrol, keppra palliative helping us. overall poor prognosis. 20 extubated palliative/hospice care d/w hospice case manager about hospice and family involvement. appreciate palliative following with us. home hospice vs.. inpt DNAR.
--- NOTE | 2020-01-06 12:26 | PDOC.HOSPP ---
- Subjective Encounter Date: 01/06/20 Encounter Time: 08:40 Subjective: pt mouth breathing, vitals stable. d/w RN. - Objective Vital Signs & Weight: Vital Signs (12 hours) Temp Pulse Resp BP Pulse Ox 01/06/20 08:05 99.0 F 100 24 H 194/94 H 97 Weight Admit Weight 185 lb Weight 192 lb 3.889 oz Most Recent Monitor Data Heart Rate from ECG 97 NIBP 142/80 NIBP BP-Mean 100 Respiration from ECG 21 SpO2 97 I&O: 01/05/20 01/06/20 01/07/20 06:59 06:59 06:59 Intake Total 1118 0 Output Total 2350 1625 Balance -5784 -6628 Result Diagrams: 01/04/20 07:55 01/02/20 04:05 Hospitalist ROS - Medication Medications: Active Medications Generic Name Dose Route Start Last Admin Trade Name Freq PRN Reason Stop Dose Admin Morphine Sulfate 2 mg 12/30/19 20:58 01/04/20 18:04 Morphine SLOW IVP 01/29/20 20:58 2 mg Q1H PRN Administration BREAKTHROUGH PAIN/Agitation Morphine Sulfate 4 mg 01/04/20 17:18 01/04/20 21:22 Morphine SLOW IVP 4 mg Q5MIN PRN Administration AIR HUNGER - Exam Eye: PERRL ENT: normocephalic atraumatic Neck: supple Heart: RRR, normal peripheral pulses Respiratory: rales, rhonchi, tachypneic Gastrointestinal: soft, normal bowel sounds Hosp A/P - Plan (1) Cardiac arrest Code(s): I46.9 - CARDIAC ARREST, CAUSE UNSPECIFIED Status: Acute (2) Anoxic brain injury, coma Status: Acute (3) Alcohol abuse and intoxication (4) Seizure disorder Code(s): G40.909 - EPILEPSY, UNSP, NOT INTRACTABLE, WITHOUT STATUS EPILEPTICUS Status: Acute Fall leading to non-displaced skull fractuure vs.. other - NS followed and no intervention, should heal on its own. * Post Cardiac arrest- ? etiology. this may be due to a seizure- given a prior history- EEG rpt reviewed * CT C-spine is negative for fracture * Neuro-surgery followed. * * Continue Vent support//levophed/propofal * on vanc/zosyn; solumedrol, keppra palliative helping us. overall poor prognosis. 20 extubated palliative/hospice care d/w shelter case manager about hospice and family involvement. appreciate palliative following with us. home hospice vs.. inpt DNAR. no change from .
[2020-01-07] MEDS: Morphine 4 MG/ML VIAL SLOW IVP PRN ×8 (07:43→18:18)
[2020-01-07 09:16] VITALS: BP 189/88; TEMP 99
--- NOTE | 2020-01-07 12:21 | PDOC.HOSPP ---
- Subjective Encounter Date: 01/07/20 Encounter Time: 08:50 Subjective: No change in his condition, breathing louder, mouth breathing. - Objective Vital Signs & Weight: Vital Signs (12 hours) Temp Pulse Resp BP Pulse Ox 01/07/20 08:00 99 F 101 H 22 H 189/88 H 92 L 01/07/20 07:40 106 H 28 H 200/100 H Weight Admit Weight 185 lb Weight 192 lb 3.889 oz Most Recent Monitor Data Heart Rate from ECG 97 NIBP 142/80 NIBP BP-Mean 100 Respiration from ECG 21 SpO2 97 I&O: 01/06/20 01/07/20 01/08/20 06:59 06:59 06:59 Intake Total 0 0 Output Total 1625 1950 Balance -1624 -1949 Result Diagrams: 01/04/20 07:55 01/02/20 04:05 Hospitalist ROS - Medication Medications: Active Medications Generic Name Dose Route Start Last Admin Trade Name Freq PRN Reason Stop Dose Admin Morphine Sulfate 2 mg 12/30/19 20:58 01/04/20 18:04 Morphine SLOW IVP 01/29/20 20:58 2 mg Q1H PRN Administration BREAKTHROUGH PAIN/Agitation Morphine Sulfate 4 mg 01/04/20 17:18 01/07/20 12:06 Morphine SLOW IVP 4 mg Q5MIN PRN Administration AIR HUNGER - Exam General Appearance: ill appearing Eye: PERRL ENT: normocephalic atraumatic Neck: supple Heart: RRR Respiratory: CTAB, normal chest expansion, rales, rhonchi Gastrointestinal: soft, normal bowel sounds Hosp A/P - Plan (1) Cardiac arrest Code(s): I46.9 - CARDIAC ARREST, CAUSE UNSPECIFIED Status: Acute (2) Anoxic brain injury, coma Status: Acute (3) Alcohol abuse and intoxication (4) Seizure disorder Code(s): G40.909 - EPILEPSY, UNSP, NOT INTRACTABLE, WITHOUT STATUS EPILEPTICUS Status: Acute Fall leading to non-displaced skull fractuure vs.. other - NS followed and no intervention, should heal on its own. * Post Cardiac arrest- ? etiology. this may be due to a seizure- given a prior history- EEG rpt reviewed * CT C-spine is negative for fracture * Neuro-surgery followed . * code status changed to DNAR [there are 3 dtrs in the family] -hospice consulted. palliative helping us. overall poor prognosis. extubated on palliative/hospice care all meds has been d/c'd, comfort care - morphine only. d/w case packer and sealer about hospice and family involvement. appreciate palliative following with us. home hospice vs.. inpt --->pending. DNAR.
--- NOTE | 2020-01-07 14:53 | PDOC.PALPN ---
Palliative Progress Note - Subjective encephalopathic, non responsive - Objective Vital Signs: Vital Signs - Most Recent Temp Pulse Resp BP Pulse Ox 99 F 101 H 22 H 189/88 H 92 L 01/07/20 08:00 01/07/20 08:00 01/07/20 08:00 01/07/20 08:00 01/07/20 08:00 - Physical Exam Constitutional: encephalitic, mild distress HEENT: moist MMs Respiratory: accessory muscle use, labored respirations, tachypnea Deviation from normal: Adventicious Cardiovascular: irregular Gastrointestinal: soft, non-tender Musculoskeletal: edema present Skin: cap refill <2 seconds Deviation from normal: encephalopathic - Assessment (1) Palliative care encounter Code(s): Z51.5 - ENCOUNTER FOR PALLIATIVE CARE Current Visit: Yes Status: Acute (2) Respiratory failure requiring intubation Code(s): J96.90 - RESPIRATORY FAILURE, UNSP, UNSP W HYPOXIA OR HYPERCAPNIA Current Visit: Yes Status: Acute (3) Anoxic brain injury Current Visit: Yes Status: Acute (4) Cardiac arrest Code(s): I46.9 - CARDIAC ARREST, CAUSE UNSPECIFIED Current Visit: Yes Status : Acute (5) Alcohol abuse Code(s): F10.10 - ALCOHOL ABUSE, UNCOMPLICATED Current Visit: No Status: Acute (6) Alcohol withdrawal Code(s): F10.239 - ALCOHOL DEPENDENCE WITH WITHDRAWAL, UNSPECIFIED Current Visit: No Status: Acute - Plan Plan: Copious secretions, will add atropine gtts to mitigate. Add Ativan for assistance with terminal restlessness Patient has been denied to hospice secondary to unfunded, CM continues to attempt to identify a hospice to assume care of patient Communicated with Dr Berg [35] minutes spent on this encounter with >50% of the time in counseling and coordination of care. - ROS Non Response: due to mental status
[2020-01-07] MEDS ORDERED: Atropine Sulfate 1% Ophth Soln 5 ml Bottle PO PRN (14:56)
[2020-01-07] MEDS ORDERED: Lorazepam 2 MG/ML VIAL SLOW IVP PRN (14:56)
--- NOTE | 2020-01-10 08:45 | PQF ---
Dina Bhatia Jr EDNA BERGMOY [id number] CLINICAL DOCUMENTATION CLARIFICATION FORM: POST DISCHARGE Addendum to original discharge summary date: ____ Late entry note date: __ DATE: 01/10/2020 ATTN:Sona Berg Please exercise your independent, professional judgment in responding to the clarification form. Clinical indicators are provided on the bottom of this form for your review. Based on your clinical judgment, can you please specify etiology of patient's cardiac arrest? Please check appropriate box(s) to determine sequence of events: [ x ] Acute hypoxic respiratory failure [ x ] Alcohol dependence with intoxication [ ] Seizure disorder [ ] Other diagnosis [ ] Unable to determine For continuity of documentation, please document condition throughout progress notes and discharge summary. Thank You. CLINICAL INDICATORS - SIGNS / SYMPTOMS / LABS HP 12/29 "found to be cardiac arrest/pulseless" HP 12/29 "lactic acidosis" ED Notes 12/29 "GCS=3" Consult 12/30 "possible anoxic brain injury" PN 12/30 "unresponsive" PN 12/30 "post cardiac arrest-?etiology may be to a seizure" Consult 12/30 "anoxic and coma" Vital Signs 12/31: Apry=785.4 Pulse=80 Respi=22 YC=155/76 RISKS: 69 years old male-HP 12/29 HTN-HP 12/29 Seizure disorder-HP 12/29 Acute hypoxic respiratory failure-HP 12/29 Alcoholic hepatitis-Consult 12/30 Alcohol dependence with withdrawal-PN 01/03 TREATMENT: Mechanical ventilation-12/29 IVF-HP 12/29 CT of brain-Collected 12/30 EEG-PN 12/30 Neurology consult-Consult 12/30 Levophed 250ml IV-OCT 20 Thiamine 100mg IV-OCT 20 Keppra 1000mg IV-OCT 20 (This form is maintained as a part of the permanent medical record) 2014 [employer] All Rights Reserved [email or web address] [phone] ANT
--- NOTE | 2020-01-10 08:53 | PQF ---
Dina AVILAYANEDNAMOY [id number] CLINICAL DOCUMENTATION CLARIFICATION FORM: POST DISCHARGE Addendum to original discharge summary date: ____ Late entry note date: __ DATE: 01/10/2020 ATTN:Sona Berg Please exercise your independent, professional judgment in responding to the clarification form. Clinical indicators are provided on the bottom of this form for your review Please check appropriate box(s): [ ] Encephalopathy: Etiology: [ ] Hypertensive [ x ] Metabolic [ x] Toxic [ ] Hypoxic [ ] Drug induced: [ ] Unspecified [ ] Other (please specify) [ ] Other diagnosis [ ] Unable to determine In addition, please specify: Present on Admission (POA): [ ] Yes [ ] No [ ] Unable to determine For continuity of documentation, please document condition throughout progress notes and discharge summary. Thank You. CLINICAL INDICATORS - SIGNS / SYMPTOMS / LABS PN 01/06 "encephalopathic" PN 01/06 "encephalitic" HP 12/29 "found to be cardiac arrest/pulseless" 12/29 "lactic acidosis" ED Notes 12/29 "GCS=3" Consult 12/30 "possible anoxic brain injury" PN 12/30 "unresponsive" Consult 12/30 "anoxic and coma" Vital Signs 12/31: Dobm=731.4 Pulse=80 Respi=22 EM=190/76 RISK FACTORS 69 years old male- 12/29 HTN- 12/29 Seizure disorder- 12/29 Acute hypoxic respiratory failure- 12/29 Alcoholic hepatitis-Consult 12/30 Alcohol dependence with withdrawal-PN 01/03 Cardiac arrest-HP 12/29 s/p fall- 12/29 Skull fracture- 12/29 TREATMENTS: Mechanical ventilation-12/29 IVF-HP 12/29 CT of brain-Collected 12/30 EEG-PN 12/30 Neurology consult-Consult 12/30 Levophed 250ml IV-OCT 20 Thiamine 100mg IV-OCT 20 Keppra 1000mg IV-OCT 20 (This form is maintained as a part of the permanent medical record) 2014 [employer] All Rights Reserved [email or web address]
--- NOTE | 2020-01-11 14:21 | DIS ---
DATE OF ADMISSION: 12/30/2019 DATE OF DISCHARGE: 01/07/2020 DISCHARGE DIAGNOSES: 1. Cardiac arrest. 2. Anoxic brain injury. 3. Alcohol abuse intoxication. 4. Seizure. 5. Fall leading to nondisplaced skull fracture. HOSPITAL COURSE: This is a 69-year-old male with a history of alcohol abuse and hypertension, transferred from [place] for cardiac arrest and syncope, preceded by a fall. He had a recent admission for alcohol abuse and DT. During this admission, he required intubation. CT of the chest showed emphysema. No pneumothorax. Mid rib fracture. Over the ICU care, he did not change. He did not had improvement neurologically. Family was consulted, and there are 4 sisters live in [facility]. It appears the patient does not want any resuscitation care, CPR, or tracheostomy, so they continued supportive care, and with family consent for withdrawal of care, extubated and code status changed to DNR. He was extubated on . Palliative Care followed. He was monitored in the medical floor. On January 06, he . Primary cause of his demise; anoxic brain injury, preceded by cardiac arrest. Secondary cause; seizure and history of chronic alcohol abuse. Job ID: [id number] [facility]
== END 2020-01-07 19:25 | disposition expired | DRG 207 ==
LOC: ERS 19:17 → CCU 22:03 → ONC 01-04 21:55
PROVIDERS: ADMIT Internal Medicine; ATTEND Internal Medicine
PROC: 5A1955Z Respiratory Ventilation, Greater than 96 Consecutive Hours (ICD-10-PCS; principal; 2019-12-30)
PROC: 3E043XZ Introduction of Vasopressor into Central Vein, Percutaneous Approach (ICD-10-PCS; 2019-12-30)
PROC: HZ2ZZZZ Detoxification Services for Substance Abuse Treatment (ICD-10-PCS; 2019-12-30)
PROC: 0T9B70Z Drainage of Bladder with Drainage Device, Via Natural or Artificial Opening (ICD-10-PCS; 2019-12-31)
DX: J96.01 Acute respiratory failure with hypoxia (principal); R40.20 Unspecified coma; R40.2312 Coma scale, best motor response, none, at arrival to emergency department; R40.2112 Coma scale, eyes open, never, at arrival to emergency department; R40.2212 Coma scale, best verbal response, none, at arrival to emergency department; G92 Toxic encephalopathy; S02.19XA Other fracture of base of skull, initial encounter for closed fracture; S22.43XA Multiple fractures of ribs, bilateral, initial encounter for closed fracture; E87.2 Acidosis; G93.1 Anoxic brain damage, not elsewhere classified; F10.230 Alcohol dependence with withdrawal, uncomplicated; F10.220 Alcohol dependence with intoxication, uncomplicated; Z51.5 Encounter for palliative care; Z66 Do not resuscitate; F17.210 Nicotine dependence, cigarettes, uncomplicated; S02.2XXA Fracture of nasal bones, initial encounter for closed fracture; W18.30XA Fall on same level, unspecified, initial encounter; Y90.8 Blood alcohol level of 240 mg/100 ml or more; I10 Essential (primary) hypertension; I37.1 Nonrheumatic pulmonary valve insufficiency; I07.1 Rheumatic tricuspid insufficiency; I45.81 Long QT syndrome; G40.909 Epilepsy, unspecified, not intractable, without status epilepticus; K70.10 Alcoholic hepatitis without ascites; R33.9 Retention of urine, unspecified; I46.8 Cardiac arrest due to other underlying condition
CPT/HCPCS: 36415; 70450; 71045; 72125; 80048; 80053; 80076; 80202; 80307; 81001; 82553; 82805; 83605; 83735; 84484; 85025; 87040; 87149; 93005; 93010; 94002; 94003; 95712; 95816; 95819; 95957; 96365; 96367; 96368; J0360; J1650; J1953; J2060; J2270; J2543; J2704; J2920; J2930; J3010; J3370; J3411; J3475; J3480; J3490; J7030; J7042; J7050; S0028